=== PATIENT | female | born 1950 | race Caucasian/White ===

== ENCOUNTER 2024-06-29 14:25 | Outpatient (AMB) | payer MEDICARE, SELFPAY ==
--- NOTE | 2024-06-29 14:43 | A.OFFVIS_ITS ---
Intake Visit Reasons: OUTSIDE PHYSICAL DAMAGE [facility]PRAISER/[facility] referral for carotid stenosis Intake Note: New patient presents for carotid stenosis. Patient has been having surveillance ultrasounds for the last 10 years but states she was told there was an increase and that is why she was referred here. Accompanied by: Spouse Allergies No Known Allergies Allergy (Verified 06/29/24 14:47) HPI HPI OUTSIDE PHYSICAL DAMAGE APPRAISER/[facility] referral for carotid stenosis: Details: The patient is a 73-year-old female presenting with carotid artery stenosis. She has been undergoing regular monitoring due to the familial prevalence of cardiovascular diseases. Recently, she underwent carotid ultrasound, stating a 50-69% stenosis bilaterally with slightly more severe findings on the right. The patient reports no neurological symptoms typically related to carotid artery disease . She denies any lateralizing signs or symptoms, speech disturbances or visual field deficits. She smokes a limited number of cigarettes daily and denies other cardiovascular risk factors such as hypertension and diabetes. She is now for vascular evaluation. Of note she is being maintained on aspirin and high-dose statin. Review of Systems Const All systems reviewed & are unremarkable except as noted in HPI and below Reports no additional complaints ENT Reports Normal hearing present Card Denies chest pain, Denies chest pain at rest, Denies chest pain with activity and Denies pedal edema Resp Denies cough GI Denies abdominal pain Musc Denies abnormal gait, Denies muscle cramps and Denies radiating pain into limb Skin/Breast Denies skin ulcer and Denies wounds Neuro Reports Normal hearing present and Denies abnormal gait Psych Reports no additional complaints Physical Exam Const General: cooperative, healthy appearing and comfortable Orientation/consciousness: oriented to person, oriented to place and oriented to time HEENT Head: Yes normal to inspection Neck Neck: Yes normal visual inspection Carotids: no bruits Chest Chest palpation & inspection: normal inspection of the chest Resp Effort & Inspection: normal respiratory effort and able to speak in complete sentences Auscultation: clear to auscultation bilaterally, no crackles, no rales, no rhonchi and no wheezes Cardio Rate: regular rate Rhythm: regular rhythm Heart sounds: S1 normal heart sound present and S2 normal heart sound present Bruits: no carotid bruits Peripheral pulses: Peripheral pulses 2+ throughout GI Inspection: Yes normal to inspection Skin Wounds: no wounds Hair: normal Neuro General: oriented to person, oriented to place and oriented to time Cranial nerves: Yes CN's II-XII intact bilaterally and Yes Normal hearing present Cognition (Neuro): normal cognition Motor exam (neuro): 5/5 motor strength present throughout Extrem Other: venous exam: No significant superficial varicosities or spider telangiectasias, minimal edema General: No clubbing, No cyanosis and No edema Psych Appearance: grossly normal Mental Status: mental status grossly normal Speech and movement: Normal speech and movement present Results Reviewed Results Reviewed: Noninvasive carotid testing dated 05/26/2024 done at an outside institution demonstrates bilateral 50-69% stenosis with a peak systolic on the right of 176 and on the left of 129. Written report reviewed only. Assessment & Plan Assessment & Plan (1) Bilateral carotid artery stenosis: Code(s): I65.23 - Occlusion and stenosis of bilateral carotid arteries Category: Medical Plan: In short patient has asymptomatic carotid disease. We have reviewed signs and symptoms of a stroke. We also discussed risk factor modification inclusive a healthy diet low in cholesterol. Based on the estimation by velocities I do believe it is on the lower side of that range. I will do surveillance follow-up in approximately 6 months' time to re-evaluate this. The patient will follow up with us with surveillance ultrasound of the carotids 6 months. Should there be any changes or signs or symptoms of a stroke we will be happy to see them back sooner. Thank you for allowing us to participate in this patient's care. If there are any questions or concerns please do not hesitate to contact us. Orders: Orders US carotid duplex BI 6 Months I65.23 - Occlusion and stenosis of bilateral carotid arteries Coding Level of Care Code New Pt Level 4 (36700) Diagnoses Bilateral carotid artery stenosis I65.23
--- OUTSIDE RECORDS SUMMARY | 2024-06-29 15:35 | XMS_ITS | Data Portability ---
Author Organization [facility], [facility] Address [address] [place] [address] Care Team Providers Care Manager Music Name Role Phone CARMELINA STARR Phys. Med. & Rehab BRI LUCERO Primary Care Provider KOURTNEY JORDAN General Surgeon EDELMIRA STONE Steam Tender PETER STRICKLAND Director Data Analytics PETER STRICKLAND Speech Language Pathologist [phone] Assessment Encounter Date Assessment Date Assessment LastModified by Organization Details LastModified Time 04/28/2023 04/28/2023 We completed your Medicare Wellness exam today. This was an opportunity to assess your overall well being including your ability to care for yourself, your mobility, memory, mental health, as well as your safety. With advancing age, it is important to assign someone in your life as your Health Care Proxy (HCP). This person should know what is important to you and what your wishes are for medical procedures if you cannot communicate your wishes yourself (severe illness, unconsciousness) . We discussed having a completed Health Care Proxy form today. In addition, today we started a conversation about your End of Life wishes. These conversations will continue over the years. Please consider reading the book, Being Mortal by Duarte Mendez to help frame future conversations. We discussed the purpose of a MOLST form (Medical Orders for Life Sustaining Treatment) and completed this form if appropriate per your wishes. Vision and Hearing are senses that are critically important as we age. When impaired, they can contribute to memory loss, falls, and make it harder to drive, talk to family and friends, and engage in the world. Please get your vision checked yearly and your hearing checked when you start to notice hearing loss. We discussed approaches to lowering your risk of heart disease and stroke . Your blood pressure is at goal. Your cholesterol is at goal. We discussed cancer screening you may need as well as vaccines to prevent infections. Colon Cancer : Your risk of colon cancer is average. Due for colorectal screenin. If you are not planning to have a colonoscopy please screen with stool cards yearly. Breast Cancer : Breast Cancer Screening (mammography). Next mammogram due: 2023. Cervical Cancer Screening (pap test). Next pap due: not needed. Influenza Vaccine : Flu shot yearly. Tetanus Vaccine : Every 10 years. Due: 2031. The following vaccines are available from your pharmacy: Pneumonia Vaccine : PCV20: once after age 65. Shingles Vaccine : 2 shots after age 50. has had pneumovax and shingrix. Covid Vaccine : Make sure you have received the most up to date covid vaccine. Your personal health goal for the year is: skillip Not available 04/28/2023 15:17:39 05/28/2024 05/28/2024 We completed your Medicare Wellness exam today. This was an opportunity to assess your overall well being including your ability to care for yourself, your mobility, memory, mental health, as well as your safety. With advancing age, it is important to assign someone in your life as your Health Care Proxy (HCP). This person should know what is important to you and what your wishes are for medical procedures if you cannot communicate your wishes yourself (severe illness, unconsciousness) . We discussed having a completed Health Care Proxy form today. If appropriate, today we started a conversation about your End of Life wishes. These conversations will continue over the years. We discussed the purpose of a MOLST form (Medical Orders for Life Sustaining Treatment) and completed this form if appropriate per your wishes. Vision and Hearing are senses that are critically important as we age. When impaired, they can contribute to memory loss, falls, and make it harder to drive, talk to family and friends, and engage in the world. Please get your vision checked yearly and your hearing checked when you start to notice hearing loss. We discussed approaches to lowering your risk of heart disease and stroke . Your blood pressure is at goal. Your cholesterol is at goal. We discussed cancer screening you may need as well as vaccines to prevent infections. Colon Cancer : Your risk of colon cancer is . Due for colorectal screenin. If you are not planning to have a colonoscopy please screen with stool cards yearly. Breast Cancer : Breast Cancer Screening (mammography). Next mammogram due: 2024. Cervical Cancer Screening (pap test). Next pap due: not needed. Influenza Vaccine : Flu shot yearly. Tetanus Vaccine : Every 10 years. Due: 2031. The following vaccines are available from your pharmacy: Pneumonia Vaccine : PCV20: once after age 65. Shingles Vaccine : 2 shots after age 50. Covid Vaccine : Make sure you have received the most up to date covid vaccine. [email or web address] Not available 05/28/2024 13:52:07 Plan of Treatment Reminders Order Date Submit Date Provider Last Modified By Organization Details Last Modified Time Details Appointments Wellness Visit 30 2025 11:30A Radha Lucero MD Not available Not available Not available Lab sjogren antibody panel (ssa, ssb, ro, la), serum 2024 025 [facility], [address] [place] [address], [id number], 06/01/2024 17:37:40 fecal occult blood, immunoass ay, stool 2024 025 [facility], [address] [place] [address], [id number], 06/08/2024 11:10:39 fecal occult blood, immunoass ay, stool - Lab- Create annual order through [facility]M-IFOBT order set. 2023 024 [facility], [address] [place] [address], [id number], 05/26/2023 16:10:31 Referral cardiotho racic vascular surgeon referral 2024 025 [email or web address] , [address] [facility] [address], [place], [address], 05/31/2024 11:59:26 Procedures None recorded. Surgeries None recorded. Imaging MAMMO, screening , tomosynth esis, bilateral - 2nd Look Consult/D iag Mammo/US Breast/Gu ided Asp/Breas t Bx/Clip Placement , as clinicall y indicated . 2023 024 [facility] (Imaging), [address], [place], [address], 09/25/2023 15:39:54 Medication Orders nicotine 7 mg/24 hr daily transderm al patch 2022 023 [email or web address] 4 [facility][id number], [address] [place], [address], 05/28/2024 11:47:29 Patient TargetsNo targets recorded. Patient Instructions Encounter Date Encounter Id Patient Instructions Last Modified By Organization Details Last Modified Time 04/28/2023 [id number] advance directives: care instructions skillip Not available 04/28/2023 15:24:55 preventing falls : care instructions skillip Not available 04/28/2023 15:24:55 hearing loss: care instructions skillip Not available 04/28/2023 15:24:55 well visit, over 65: care instructions skillip Not available 04/28/2023 15:24:55 Reason for Referral Cardiothoracic Vascular Surg antoine Referral for Precerebral arterial occlusion Referring Physician: Mario Puri, Family Medicine, Encounter Date: 05/28/2024 Results Created Date Observation Date Name Description Value Unit Range Abnormal Flag Note LastModifiedBy Organization Detail LastModifiedTime 04/22/1904/22/2023 LIPID PANEL cholesterol 184 mg/dL <200 mg/dl Ana Lilia able 200-2 39 mg/dl Borde rline High >240 mg/dl High Not Available [address], [address], 04/22/2023 14:21:33 04/22/1904/22/2023 LIPID PANEL triglyceride s 68 mg/dL <150 mg/dL Jayshree l 150-1 99 mg/dL Borde rline High 200-4 99 mg/dL High >500 mg/dL Very High Not Available [address], [address], 04/22/2023 14:21:33 04/22/19 24 04/22/2023 LIPID PANEL direct HDL 62 mg/dL <40 mg/dl - Major Risk for CHD >60 mg/dl - Negat marie Risk for CHD Not Available [address], [address], 04/22/2023 14:21:33 04/22/19 24 04/22/2023 GLUCO SE glucose 83 mg/dL 70-100 Not Available [address], [address], 04/22/2023 14:21:34 04/22/19 24 04/22/2023 LDL - CALCU LATED LDL - calculated 108.4 RISK CATEG ORY LDL GOAL _ CHD or CHD Risk Equiv alent s <100 mg/dl (10-y ear risk >20%) 2+ Risk Facto rs <130 mg/dl (10-y ear risk <= 20%) 0-1 Risk Facto r? <160 mg/dl ? Almos t all peopl e with 0-1 risk facto r have a 10 year risk <10%, thus 10 year risk asses ment in peopl e with 0-1 risk facto r is not roslyn ewa. Not Available [address], [address], 04/22/2023 14:21:35 04/22/19 24 04/22/2023 TSH TSH 2.95 uIU/m L 0.50-6 .00 The [employer] Colle ge of Endoc rinol ogy and [employer] Thyro id Assoc iatio n recom mend goal TSH value s betwe en 0.4-4 .0 mIU/m L. Not Available [address], [address], 04/22/2023 14:47:38 05/25/19 24 05/26/2023 IMMUN OCHEM ICAL FECAL OCCUL T BLOOD ifobt NEGATI VE negati ve Not Available [address], [address], 05/26/2023 16:10:31 05/22/19 25 05/21/2024 CBC WBC 8.46 K/? ? ?L 3.98-1 0.04 Not Available [address], [address], 05/21/2024 12:42:34 05/22/19 25 05/21/2024 CBC RBC 4.79 M/? ? ?L 3.93-5 .22 Not Available [address], [address], 05/21/2024 12:42:34 05/22/19 25 05/21/2024 CBC HGB 13.9 g/dL 11.2-1 5.7 Not Available [address], [address], 05/21/2024 12:42:34 05/22/19 25 05/21/2024 CBC HCT 44.1 % 34.1-4 4.9 Not Available [address], [address], 05/21/2024 12:42:34 05/22/19 25 05/21/2024 CBC MCV 92.1 fL 79.4-9 4.8 Not Available [address], [address], 05/21/2024 12:42:34 05/22/19 25 05/21/2024 CBC MCH 29.0 pg 25.6-3 2.2 Not Available [address], [address], 05/21/2024 12:42:34 05/22/19 25 05/21/2024 CBC MCHC 31.5 g/dL 32.2-3 5.5 low Not Available [address] [place], [address], 05/21/2024 12:42:34 05/22/1905/21/2024 CBC plt 252 K/? ? ?L 182-36 9 Not Available [address], [address], 05/21/2024 12:42:34 05/22/1905/21/2024 CBC MPV 10.8 fL 9.4-12 .3 Not Available [address], [address], 05/21/2024 12:42:34 05/22/1905/21/2024 CBC neut% 67.5 % 34.0-7 1.1 Not Available [address], [address], 05/21/2024 12:42:34 05/22/1905/21/2024 CBC neut# 5.71 1.56-6 .13 Not Available [address], [address], 05/21/2024 12:42:34 05/22/1905/21/2024 CBC lymph % 24.2 % 19.3-5 1.7 Not Available [address], [address], 05/21/2024 12:42:34 05/22/1905/21/2024 CBC lymph # 2.05 K/? ? ?L 1.18-3 .74 Not Available [address], [address], 05/21/2024 12:42:34 05/22/1905/21/2024 CBC mono% 5.1 % 4.7-12 .5 Not Available [address], [address], 05/21/2024 12:42:34 05/22/1905/21/2024 CBC mono# 0.43 0.24-0 .56 Not Available [address], [address], 05/21/2024 12:42:34 05/22/19 25 05/21/2024 CBC eo% 2.1 % 0.7-5. 8 Not Available [address], [address], 05/21/2024 12:42:34 05/22/19 25 05/21/2024 CBC eo# 0.18 0.04-0 .36 Not Available [address], [address], 05/21/2024 12:42:34 05/22/19 25 05/21/2024 CBC baso% 0.7 % 0.1-1. 2 Not Available [address], [address], 05/21/2024 12:42:34 05/22/1905/21/2024 CBC baso# 0.06 0.00-0 .08 Not Available [address], [address], 05/21/2024 12:42:34 05/22/19 25 05/21/2024 CBC RDW-CV 13.5 % 11.7-1 4.4 Not Available [address], [address], 05/21/2024 12:42:34 05/22/1905/21/2024 CBC Ig% 0.400 % 0.000- 1.500 Ig % >0.5 Indic ates possi ble Left Shift Not Available [address], [address], 05/21/2024 12:42:34 05/22/19 25 05/21/2024 CBC Ig# 0.030 0.000- 0.093 Not Available [address], [address], 05/21/2024 12:42:34 05/22/19 25 05/21/2024 CBC NRBC% 0.0 % 0.0-0. 2 Not Available [address], [address], 05/21/2024 12:42:34 05/22/19 25 05/21/2024 CBC NRBC# 0.000 0.000- 0.012 Not Available [address], [address], 05/21/2024 12:42:34 05/22/19 25 05/21/2024 COMP. METAB OLIC PANEL glucose 84 mg/dL 70-100 Not Available [address], [address], 05/21/2024 14:09:30 05/22/19 25 05/21/2024 COMP. METAB OLIC PANEL BUN 10 mg/dL 7-18 Not Available [address], [address], 05/21/2024 14:09:30 05/22/19 25 05/21/2024 COMP. METAB OLIC PANEL creatinine 0.7 mg/dL 0.8-1. 3 low Not Available [address], [address], 05/21/2024 14:09:30 05/22/19 25 05/21/2024 COMP. METAB OLIC PANEL B/C 14.3 ratio Not Available [address], [address], 05/21/2024 14:09:30 05/22/19 25 05/21/2024 COMP. METAB OLIC PANEL GFR >=60ML /MIN mL/mi n normal >=60m L/min - Jayshree l or midly reduc ed <60mL /min- Decre ased kidne y funct ion <15mL /min - Kidne y failu re [facility] calcu lates estim ated Glome rular Filtr ation Rate (eGFR ) using the Chron ic Kidne y Disea se Epide miolo gy Colla borat ion (CKD- EPI) Equat ion (Jacqueline r et. al 2020) as recom adin d by the Venkatesh tinajero Kidne y Found ation . eGFR is based on age, serum creat inine , and sex. CKD-E PI does not calcu late eGFR by race, does not apply to child richard (age <18 years ), and shoul d not be used in pregn farhad. Not Available [address], [address], 05/21/2024 14:09:30 05/22/19 25 05/21/2024 COMP. METAB OLIC PANEL sodium 145 mmol/ L 136-14 5 Not Available [address], [address], 05/21/2024 14:09:30 05/22/19 25 05/21/2024 COMP. METAB OLIC PANEL potassium 4.5 mmol/ L 3.5-5. 1 Not Available [address], [address], 05/21/2024 14:09:30 05/22/19 25 05/21/2024 COMP. METAB OLIC PANEL chloride 109 mmol/ L 96-107 high Not Available [address], [address], 05/21/2024 14:09:30 05/22/19 25 05/21/2024 COMP. METAB OLIC PANEL anion gap 7.4 5.0-15 .0 Not Available [address], [address], 05/21/2024 14:09:30 05/22/19 25 05/21/2024 COMP. METAB OLIC PANEL CO2 29 mmol/ L 21-32 Not Available [address], [address], 05/21/2024 14:09:30 05/22/19 25 05/21/2024 COMP. METAB OLIC PANEL calcium 9.1 mg/dL 8.5-10 .3 Not Available [address], [address], 05/21/2024 14:09:30 05/22/19 25 05/21/2024 COMP. METAB OLIC PANEL total protein 6.0 g/dL 6.4-8. 2 low Not Available [address], [address], 05/21/2024 14:09:30 05/22/19 25 05/21/2024 COMP. METAB OLIC PANEL albumin 3.3 g/dL 3.4-5. 0 low Not Available [address], [address], 05/21/2024 14:09:30 05/22/19 25 05/21/2024 COMP. METAB OLIC PANEL globulin 2.7 g/dL Not Available [address], [address], 05/21/2024 14:09:30 05/22/19 25 05/21/2024 COMP. METAB OLIC PANEL A/G 1.2 ratio 0.8-2. 0 Not Available [address], [address], 05/21/2024 14:09:30 05/22/19 25 05/21/2024 COMP. METAB OLIC PANEL total bilirubin 0.60 mg/dL 0.00-1 .00 Not Available [address], [address], 05/21/2024 14:09:30 05/22/19 25 05/21/2024 COMP. METAB OLIC PANEL AST 16 U/L 0-37 Not Available [address], [address], 05/21/2024 14:09:30 05/22/19 25 05/21/2024 COMP. METAB OLIC PANEL ALT 28 U/L 6-63 Not Available [address], [address], 05/21/2024 14:09:30 05/22/19 25 05/21/2024 COMP. METAB OLIC PANEL alk. phos. 68 U/L 50-136 Not Available [address], [address], 05/21/2024 14:09:30 05/22/19 25 05/21/2024 LIPID PANEL cholesterol 172 mg/dL <200 mg/dl Ana Lilia able 200-2 39 mg/dl Borde rline High >240 mg/dl High Not Available [address], [address], 05/21/2024 14:09:31 05/22/19 25 05/21/2024 LIPID PANEL triglyceride s 91 mg/dL <150 mg/dL Jayshree l 150-1 99 mg/dL Borde rline High 200-4 99 mg/dL High >500 mg/dL Very High Not Available [address], [address], 05/21/2024 14:09:31 05/22/19 25 05/21/2024 LIPID PANEL direct HDL 65 mg/dL <40 mg/dl - Major Risk for CHD >60 mg/dl - Negat marie Risk for CHD Not Available [address], [address], 05/21/2024 14:09:31 05/22/1905/21/2024 LDL - CALCU LATED LDL - calculated 89 RISK CATEG ORY LDL GOAL _ CHD or CHD Risk Equiv alent s <100 mg/dl (10-y ear risk >20%) 2+ Risk Facto rs <130 mg/dl (10-y ear risk <= 20%) 0-1 Risk Facto r? <160 mg/dl ? Almos t all peopl e with 0-1 risk facto r have a 10 year risk <10%, thus 10 year risk asses ment in peopl e with 0-1 risk facto r is not aleahmarciano mcneil. Not Available [address], [address], 05/21/2024 14:09:32 05/22/19 25 05/21/2024 TSH TSH 2.83 uIU/m L 0.50-6 .00 The [employer] can Colle ge of Endoc rinol ogy and Ameri can Thyro id Assoc iatio n recom mend goal TSH value s betwe en 0.4-4 .0 mIU/m L. Not Available [address], [address], 05/21/2024 14:17:53 05/29/19 25 06/01/2024 SJOGR EN'S ANTIB ODIES (SS-A ,SS-B ) sjogren's antibody (ss-A) <1.0 NEG ai <1.0 neg normal Not Available [facility] [address], [address], 06/01/2024 17:37:40 05/29/19 25 06/01/2024 SJOGR EN'S ANTIB ODIES (SS-A ,SS-B ) sjogren's antibody (ss-B) <1.0 NEG ai <1.0 neg normal Not Available [facility] [address], [address], 06/01/2024 17:37:40 06/04/19 25 06/08/2024 IMMUN OCHEM ICAL FECAL OCCUL T BLOOD ifobt NEGATI VE negati ve Not Available [address], [address], 06/08/2024 11:10:39 01/23/20 23 01/20/2023 CT chest lung cance r cocoe alanna paige l CT CHEST LUNG CANCER SCREEN ING ANNUAL Referr ing clinic dimitris's provid ed indica tion for this examin ation in [facility]: * Lung Cancer Screen ing TECHNI QUE: Low dose multid etecto r CT of the chest was perfor med withou t intrav enous contra st using tailor ed dose modula tion techni ques. COMPAR TAVO: 022 FINDIN GS: Device s/Tube s/Line s: None. Lungs: The centra l airway s are patent . There is upper lobe centri lobula r emphys lisha. Scatte red solid 2 to 5 mm pulmon melvina nodule s are presen t the larges t measur e 6 mm (for instan ce 4:200, 89, 121, 166) No eviden ce of new or growin g pulmon melvina nodule s Pleura : No eviden ce of pleura l effusi on or pneumo thorax Medias tinum: The heart and perica rdium are stable . No eviden ce of perica rdial effusi on. Mild haskins ry artery calcif icatio n. Lymph Nodes: No enlarg ed suprac lavicu lar, axilla ry, medias tinal, or hilar lymph nodes. Upper Abdome n: Absenc e of intrav enous contra st and low dose techni que limits sensit ivity for detect ing small lesion s, solid organ and vascul ar findin gs. No abnorm ality detect ed in the visual ized upper abdome n. Chest Wall: No chest wall mass. Bones: No suspic ious lytic or blasti c lesion s. IMPRES KAYE: Lung-R ADS Catego ry: 2. Multip le pulmon melvina nodule s. The domina nt solid nodule is locate d in the right middle lobe and has a mean size of 6 mm (serie s 4, image 200). The catego ry-det ermini ng solid nodule has a very low likeli gregory of becomi ng a clinic ally active cancer , due to size and/or lack of growth . RECOMM ENDATI ONS: Contin ue annual Lung Cancer Screen ing Chest CT examin ation if patien t meets eligib ility criter ia, in Dece er 2023. To order, please type CT CHEST SCREEN ING (CT.TH .CHEST SCR) and select ANNUAL for patien t progra m status . Explan ation of the Lung-R ADS catego rosario can be found at: [email or web address] Electr onical ly Signed by: Dr. Jeff Barlow on 023 9:48 AM Interp reted by: Jeff Barlow MD Signed by: Jeff Barlow MD 3 Final result [facility] [address] [facility], [place], [address], 01/22/2023 21:45:05 09/25/19 24 09/25/2023 MAMMO , scree alanna, tomos ynthe sis, bilat eral MAMMO, SCREEN , MONIKA, BILAT: 09/25/19 24. BI-RAD S: 1 CLINIC AL: 73-yea r old Female for Bilate ral Screen ing Mammog tashia. [facility] lifeti me risk of 4.3%. No person al or first- degree family histor y of breast cancer . PRIOR EXAMS: Review ed previo us images from 2022. MAMMOG KAMAR TECHNI QUE: 3D mammog kamar (tomos ynthes is) and 2D mammog kamar (C-vie w) images are genera derrell. Images review ed with a CAD system . DENSIT Y C. Hetero geneou sly dense, which may obscur e small masses . MAMMOG KAMAR FINDIN GS Bilate ral: No suspic ious mass, asymme try, microc alcifi cation , or other abnorm ality seen. CONCLU SIONNo eviden ce of malign farhad. RECOMM ENDATI ONS Bilate ralAnn ual screen ing mammog kamar. ADMINI STRATI VE: A lay summar y was mailed to your patien t indica harman the result s and recomm endati ons for follow -up. OVERAL L ASSESS MENT CATEGO RY BI-RAD S-1: Negati ve. The [employer] o[employer] recomm ends annual screen ing mammog kamar beginn ing at age 40 for women with averag e risk of breast cancer . ELECTR ONICAL LY SIGNED : Suresh Ayala M.D. on 2023 at 03:38: 47 PM Megan smith Physic dimitris: Suresh Ayala [facility] (Imaging) [address] [place], [address], 09/25/2023 17:00:27 05/27/19 25 05/26/2024 US, carot id arter y CLINIC AL HISTOR Y: Pre-ce rebral arteri al occlus ion. TECHNI QUE: 2D, color flow, and spectr al Dopple r of the neck arteri es perfor med. COMPAR TAVO: 05/20/22 Image total: 83 FINDIN GS: R CCA peak systol ic veloci ty: 72 cm/s R ICA peak systol ic veloci ty: 176 cm/s R ICA/CC A SV ratio: 2.4 There is severe athero sclero tic diseas e on the right side. L CCA peak systol ic veloci ty: 103 cm/s L ICA peak systol ic veloci ty: 129 cm/s L ICA/CC A SV ratio: 1.3 Likely modera te athero sclero tic diseas e on the left side. There is antegr isauro flow in the verteb ral arteri es. IMPRES KAYE: Duplex ultras ound estima radha stenos is by using veloci ty parame ters that have been valida derrell with other method ologie s that utiliz e direct measur es of the internal control manager al deana arndt er. Based on these criter ia, there is 50-69% stenos is of the ICAs. Megan smith Physic dimitris: Otoniel richards [email or web address] [facility] (Imaging) [address] [place], [address], 05/28/2024 12:03:35 Result Notes None recorded. Problems Name Problem SNOMED Code Status Onset Date Resolution Date Notes Provider Name and Address Organization Details Recorded Time Abnormal findings on diagnost ic imaging of breast 439956862 Completed 01/26/2018 Bri Lucero MD [address] [place] [address], [address] , [facility] 8 11:54:46 Asthma 988001136 Completed 04/16/2016 Bennie Oh MD [address] [place] [address], [address] , [facility] 7 11:29:16 Osteoart hritis of knee 389096698 Active Not Available [facility] 1 12:37:45 Knee pain Completed 01/06/2013 Not Available [facility] 3 02:00:43 Lyme disease 98769157 Active Not Available [facility] 12:37:46 Measurem ent finding outside referenc e range 862297794 Completed 07/27/2014 Bennie Oh MD [address] [place] [address], [address] , [facility] 5 16:25:01 Pain of multiple joints 38759198 Completed 07/27/2014 Bennie Oh MD [address] [place] [address], [address] , [facility] 5 16:25:01 Hyperthy roidism 95459961 Active [facility] hyper function ing nodule Not Available [facility] 12:37:46 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; lobectom y done Not Available [facility] 12:37:45 Adult health examinat ion Completed 201507/22/2016 Bennie Oh MD [address] [place] [address], [address] , [facility] 7 12:15:15 Thyroid stimulat ing hormone level above referenc e range 223029567 Completed 201507/22/2016 Bennie Oh MD [address] [place] [address], [address] , [facility] 7 12:15:21 Cough variant asthma 039751665 Active 2016 Not Available [facility] 1 12:37:45 Screenin g for malignan t neoplasm of colon Active 2016 Not Available [facility] 12:37:46 Tobacco user 524409915 Active 2019 Quit last year (2018) and restarte d: 3 cigarett es per night. Not Available [facility] 12:37:46 Spastic dysphoni a 71859314 Active 2022 Blanca Herrera PA-C [address] [place], [address] , [facility] 3 14:19:44 Carotid artery stenosis 82649373 Active 2022 Blanca Herrera PA-C [address] [place], [address] , [facility] 3 14:19:46 Mixed hyperlip idemia 809595133 Completed 200103/29/2008 Not Available [facility] 3 03:06:24 Carotid artery occlusio n 404492618 Completed 200401/06/2013 Not Available [facility] 3 02:04:12 Benign neoplasm of skin of trunk, excludin g scrotum Completed 200403/29/2008 Not Available [facility] 3 03:06:24 Gastroes ophageal reflux disease 552963574 Active 2004 Not Available [facility] 1 12:37:46 Non-toxi c uninodul ar goiter 547070186 Completed 03/24/2014 Bennie Oh MD [address] [place] [address], [phone] , [facility] 5 17:21:31 Cerebral infarcti on 205340354 Completed 200501/02/2011 Not Available [facility] 3 03:06:24 Neck pain 12602330 Completed 200703/29/2008 Not Available [facility] 3 03:06:24 Motion sickness 28225135 Completed 200801/02/2011 Not Available [facility] 3 03:06:24 Basilar artery occlusio n 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 Completed 200703/29/2008 Not Available [facility] 3 03:06:24 Pain of joint 85267452 Completed 200403/29/2008 Not Available [facility] 3 03:06:24 Localize d, primary osteoart hritis of the hand 406464769 Completed 200601/02/2011 Not Available [facility] 3 03:06:24 Neoplast ic disease 44587173 Completed 201107/27/2014 Bennie Oh MD [address] [place] [address], [address] , [facility] 5 16:25:01 Anemia 682877301 Completed 200201/02/2011 Not Available [facility] 3 03:06:24 Hyperlip idemia 54354887 Active 2001 Not Available [facility] 1 12:37:46 Acute ill-defi neelam cerebrov ascular disease Active 2003 Not Available [facility] 1 12:37:45 Malaise and fatigue 402227661 Completed 200503/29/2008 Not Available [facility] 3 03:06:24 Carpal tunnel syndrome 46233251 Completed 200603/29/2008 Not Available [facility] 3 03:06:24 Solitary nodule of lung 819496168 Completed 09/19/2011 Not Available [facility] 3 03:06:24 Cough 93686832 Completed 200103/29/2008 Not Available [facility] 3 03:06:24 Senile hyperker atosis 009675369 Completed 200801/02/2011 Not Available [facility] 3 03:06:24 Senile hyperker atosis 941989755 Completed 200403/29/2008 Not Available [facility] 3 03:06:24 Inflamma tory disease of liver 038074435 Completed 200207/27/2014 Bennie Oh MD [address] [place] [address], [phone] , [facility] 5 16:25:01 Tobacco user 997195757 Completed 200206/13/2014 Farida Sosa NP [address] [place] [address], [address] , [facility] 0 10:46:16 Allergic asthma without status asthmati cus 49831808 Completed 200107/27/2014 Bennie Oh MD [address] [place] [address], [phone] , [facility] 5 16:25:01 Pure hypercho lesterol emia 244850507 Completed 200403/29/2008 Not Available [facility] 3 03:06:24 Menstrua tion finding Completed 200203/29/2008 Not Available [facility] 3 03:06:24 Precereb ral arterial occlusio n 597547174 Active 2008 carotid ultrasou nd every 2 years Not Available [facility] 1 12:37:45 Adverse reaction to substanc e 916316724 Completed 200203/29/2008 Not Available [facility] 3 03:06:24 Finding by method 588039178 Completed 200103/29/2008 Not Available [facility] 3 03:06:24 Breast lump 46966166 Completed 200801/02/2011 Not Available [facility] 3 03:06:24 Common cold 54108539 Completed 200503/29/2008 Not Available [facility] 3 03:06:24 Mammogra phy abnormal 092128727 Completed 200703/29/2008 Not Available [facility] 3 03:06:24 Insect bite to trunk - nonvenom ous 644167984 Completed 01/02/2011 Not Available [facility] 3 03:06:24 Lumbar sprain 005338656 Completed 199903/29/2008 Not Available [facility] 3 03:06:24 Osteoart hritis 047196069 Completed 200507/22/2016 Bennie Oh MD [address] [place] [address], [address] , [facility] 7 12:15:27 Hypothyr oidism 22206404 Completed 200703/24/2014 Bennie Oh MD [address] [place] [address], [address] , [facility] 5 17:21:31 Asthma 019166653 Completed 200801/02/2011 Bennie Oh MD [address] [place] [address], [phone] , [facility] 7 11:29:16 Pain in limb 78462744 Completed 200503/29/2008 Not Available [facility] 3 03:06:24 Primary fibromya lgia syndrome 31792548 Completed 200203/29/2008 Not Available [facility] 3 03:06:24 Problem Notes None recorded. Procedures Surgical History Date Name Laterality Status Provider Name and Address Organization Details Recorded Time 05/29/19 25 Medicare Wellness Visit completed Pan Hopkins [facility] 05/28/2024 11:29:55 05/29/19 25 Cerumen Removal - Irrigation/Lavage completed Yolis Caruso LPN [facility] 05/28/2024 12:22:08 04/28/19 24 Medicare Wellness Visit completed Peter Larson CMA [facility] 04/28/2023 14:44:47 01/17/20 23 Smoking cessation counseling completed Bibiana Tracy MA [facility] 01/16/2023 13:49:01 10/18/19 23 Smoking cessation counseling completed Amanda Guy [facility] 10/17/2022 13:38:17 08/23/19 23 Smoking cessation counseling completed Bibiana Tracy MA [facility] 08/22/2022 13:44:03 04/24/19 23 Smoking cessation counseling completed Charlene Phillips MA [facility] 04/23/2022 13:51:38 04/24/19 23 Medicare Wellness Visit completed Charlene Phillips MA [facility] 04/23/2022 09:08:18 10/18/19 22 Cerumen Removal - Irrigation/Lavage completed Elenita Barrett LPN [facility] 10/17/2021 12:54:21 09/06/19 22 Smoking cessation counseling completed Ana Lamar MD [address] [place] [address], [phone], [facility] 09/06/2021 09:33:11 03/19/19 22 Smoking cessation counseling completed Bri Lucero MD [address] [place] [address], [phone], [facility] 03/19/2021 11:42:40 03/19/19 22 Medicare Wellness Visit completed Courtney Rivera [facility] 03/19/2021 09:31:15 03/19/19 22 Alcohol use screening completed Courtney Rivera [facility] 03/19/2021 09:31:15 03/19/19 22 Cardiovascular disease risk reduction counseling completed Courtney Rivera [facility] 03/19/2021 09:31:15 02/03/20 20 Smoking cessation counseling completed Marium Helms [facility] 02/03/2020 08:19:44 02/03/20 20 Medicare Wellness Visit completed Marium Helms [facility] 02/03/2020 08:18:43 02/03/20 20 prevention-cardiov ascular risk reduction counseling completed Marium Helms [facility] 02/03/2020 08:18:43 02/03/20 20 prevention-annual alcohol misuse screening completed Marium Helms [facility] 02/03/2020 08:18:43 02/02/20 19 Medicare Wellness Visit completed Ananya Araujo MA [facility] 02/01/2019 08:05:02 02/02/20 19 Advanced Care Planning completed Bri Lucero MD [address] [place] [address], [phone], [facility] 02/01/2019 12:08:41 02/25/19 19 Cerumen Removal - Irrigation/Lavage completed Misti Hooper LPN [facility] 02/25/2018 13:00:43 01/27/20 18 Medicare Wellness Visit completed nAanya Araujo MA [facility] 01/26/2018 11:07:13 01/27/20 18 Advanced Care Planning completed Bri Lucero MD [address] [place] [address], [phone], [facility] 01/26/2018 12:05:00 11/23/19 15 Cerumen Removal completed Kortney Forte RN [facility] 11/22/2014 10:27:44 07/28/19 15 Corticosteroid Injection completed Bennie Oh MD [address] [place], [address], [facility] 07/27/2014 15:49:37 10/05/19 14 Corticosteroid Injection completed Bennie Oh MD [address] [place] [address], [phone], [facility] 10/04/2013 13:30:32 04/12/19 14 Treatment and Advice completed Carmelina Starr, PT [address] [place], [address], [facility] 04/12/2013 13:01:12 03/08/19 14 Treatment and Advice completed Carmelina Starr, PT [address] [place], [address], [facility] 03/08/2013 13:00:02 01/20/20 13 Treatment and Advice completed Carmelina Starr, PT [address] [place], [address], [facility] 01/19/2013 12:05:09 12/31/19 13 Treatment and Advice completed Carmelina Starr, PT [address] [place], [address], [facility] 12/30/2012 12:57:54 12/22/19 13 Treatment and Advice completed Carmelina Starr, PT [address] [place], [address], [facility] 12/21/2012 13:04:34 01/15/20 11 Cerumen Removal completed Hemalatha Antunez LPN [facility] 01/14/2011 12:15:20 03/30/19 09 Actinic Keratosis completed Bennie Oh MD [address] [place], [address], [facility] 03/30/2008 19:46:21 lobectomy of thyroid gland completed Blanca Herrera PA-C [address] [place], [address], [facility] 04/23/2022 14:06:25 Imaging Results Imaging Date Name Status LastModified by Organiz ation Details LastModified Time 01/20/2023 CT chest lung cancer screening annual completed [facility] [address] [facility], [place], [address], 01/22/2023 21:45:05 09/25/2023 MAMMO, screening, tomosynthesis, bilateral completed [facility] (Imaging) [address] [place], [address], 09/25/2023 17:00:27 05/26/2024 US, carotid artery completed [email or web address] (Imaging) [address] [place], [address], 05/28/2024 12:03:35 Procedure Notes None recorded. Medical Equipment None Reported. Allergies No known drug allergies Medications Name Sig Start Date Stop Date Status Note LastModified by Organization Details LastModified Time amoxicill in 500 mg capsule TAKE ONE CAPSULE BY MOUTH 3 TIMES A DAY FOR 7 DAYS active Not Available Not Available No t Available atorvasta tin 80 mg tablet TAKE 1 TABLET BY MOUTH EVERY DAY active Not Available Not Available No t Available prednison e 10 mg tablet 6 po daily today; 5 x1 day; 4x1;3x1; 2x1;1x1 2008 active Not Available Not Available Not Avai lable hydroquin one 4 % topical cream APPLY TO THE AFFECTED AREA(S) BY TOPICAL ROUTE 2 TIMES PER DAY IN THEMORNI NG AND AT BEDTIME 10/17 completed Not Available Not Available Not Available Debrox 6.5 % ear drops INSTILL 5 DROPS INTO AFFECTED EAR(S) BY OTIC ROUTE 2 TIMES PER DAY 02/25 completed Not Available Not Available Not Available Nicotrol 10 mg inhalatio n cartridge Inhale 1 cartridg e as needed by inhalati on route as directed for 30 days. 10/17 completed did not work 03/19/21 [facility] Not Available Not Available Not Available pantopraz ole 20 mg tablet,de layed release TAKE 1 TABLET BY MOUTH EVERY OTHER DAY 2023 active Not Available Not Available Not Avai lable oxycodone -acetamin ophen 5 mg-325 mg tablet TAKE 1-2 TABLET BY MOUTH EVERY 4 HOURS NEEDED FOR PAIN active Not Available Not Available No t Available Questran 4 gram oral powder 2007 active Take 4.00 gms twice daily Not Available Not Available Not Available pantopraz ole 40 mg tablet,de layed release TAKE 1 TABLET DAILY active Not Available Not Available No t Available gabapenti n 300 mg capsule take 1 tablet three times a day active Not Available Not Available No t Available monteluka st 10 mg tablet TAKE 1 TABLET EVERY DAY IN THE EVENING active Not Available Not Available No t Available aspirin 81 mg tablet Take 1 tablet every day by oral route. 2008 active Not Available Not Available Not Avai lable gabapenti n 100 mg capsule active Not Available Not Available Not Available Transderm -Scop 1 mg over 3 days transderm al patch Apply 1 patch by transder mal route to the hairless area behind 1 ear at least 4 hours before effect is required ; reapply every 3 days as needed 2008 active Not Available Not Available Not Avai lable doxycycli ne hyclate 100 mg tablet Take 1 tablet twice a day by oral route for 14 days. 09/14 completed Not Available Not Available Not Available nicotine 7 mg/24 hr daily transderm al patch Apply 1 patch every day by transder mal route for 28 days. 05/28 completed not current 05/28/24 tb Not Available Not Available Not Available Aspir-81 active not currentl y taking while on blood thinner 08/22/22/ m // not taking 01/16/23 Not Available Not Available Not Available ProAir HFA 90 mcg/actua tion aerosol inhaler INHALE 2 PUFFS BY MOUTH EVERY 4 HOURS active Not Available Not Available No t Available Xarelto 20 mg tablet TAKE 1 TABLET BY MOUTH EVERY DAY FOR 60 DAYS 01/16 completed Not Available Not Available Not Available Xarelto DVT-PE Treatment 30-Day Starter 15 mg(42)-20 mg(9) tablet pack Take one 15mg tablet twice a day for 21 days then take one 20mg tablet once daily for 9 days 01/16 completed complete d now taking 20 mg daily 01/16/23 Not Available Not Available Not Available tiotropiu m 2.5 mcg-oloda terol 2.5 mcg/actua tion mist for inhalatio n Inhale 2 puffs every day by inhalati on route. 04/23 completed per pulm note 01/24/22 Not Available Not Available Not Available tiotropiu m-olodate rol 06/14 completed noted on summary of care from 06/03/22c aused a cough 06/14/22 Not Available Not Available Not Available Shingrix (PF) 50 mcg/0.5 mL intramusc ular suspensio n, kit 02/01 completed Not Available Not Available Not Available Paxlovid 300 mg (150 mg x 2)-100 mg tablets in a dose pack Take nirmatre lvir 300mg (150mg x 2 tabs) and ritonavi r 100mg (one tab) by mouth twice a day x 5 days 05/28 completed not current 05/28/24 tb Not Available Not Available Not Available Vitals Date Recorded Body height Body mass index (BMI) Body weight Systolic blood pressure Diastolic blood pressure Provider Name and Address Organization Details Last Updated DateTime 01/16/2023 153.67 cm 24.2 kg/m2 24383.64 g 102 mm[Hg] 60 mm[Hg] Bibiana bone [facility] 3 13:52:24 Date Recorded Body height Heart rate Body mass index (BMI) Body weight Systolic blood pressure Diastolic blood pressure Provider Name and Address Organization Details Last Updated DateTime 4 155.58 cm 68 /min 23.2 kg/m2 66393.7 4 g 128 mm[Hg] 66 mm[Hg] Peter Larson [facility] 4 14:51:00 Date Recorded Oxygen saturation Oxygen saturation in Arterial blood by Pulse oximetry Heart rate Body weight Body mass index (BMI) Body height Systolic blood pressure Diastolic blood pressure Provider Name and Address Organization Details Last Updated DateTime 5 99 % 99 % 82 /min 45131.3 4 g 23.4 kg/m2 156.21 cm 122 mm[Hg] 68 mm[Hg] Pan Hopkins [facility] 5 11:42:09 Social History Question Answer Notes LastModified by Organizat ion Details LastModified Time Tobacco Smoking Status Former Smoker started at 22; mostly 1/2 PPD 04/23/22 3 a day on average 08/22/22 - 3/4 cigarettes a night 01/16/23 - 3/4 @ night Using patch, mostly without smoking 04/28/23 sherita Hopkins MA [facility], [facility] 05/28/2024 11:36:39 Do You Have An Advance Directive? No Form Given-regiven 12/15/12 Latia Isaac Information not available 07/25/2009 How Much Tobacco Do You Chew? None [email or web address] Information not available 01/01/2013 Which Illicit Or Recreational Drugs Have You Used? None [email or web address] Information not available 01/03/2011 Education 12 [email or web address] Information not available 01/03/2011 What Is The Highest Grade Or Level Of School You Have Completed Or The Highest Degree You Have Received? [id number] [email or web address] Information not available 03/19/2021 When Did You Quit Smoking? 1-5yearssin celastciantione ette Information not available 05/28/2024 How Many Days In The Past Year Have You Had A Heavy Drinking Consumption (4+ Female, 5+ Male)? 0 [email or web address] Information not available 02/03/2020 Live Alone Or With Others? With Others Partner Latia Isaac Since 1984 Information not available 12/15/2012 Patient Has Health Care Proxy Signed And In Chart Yes [email or web address] Information not available 03/17/2018 CCM Consent Discussion 03/19/2021 [email or web address] Information not available 03/22/2021 Marital Status Domestic Partner [email or web address] Information not available 01/03/2011 Mosquito Repellent Used Routinely Yes Information not available 08/11/2017 What Was The Date Of Your Most Recent Tobacco Screening? 05/28/2024 Information not available 05/28/2024 How Many Children Do You Have? 0 [email or web address] Information not available 01/03/2011 Are There Any Occupational Health Risks Where You Work? None Information not available 08/11/2017 What Is Your Current Pack Years? 20-29packye ars Information not available 05/28/2024 What Is Your Relationship Status? Domestic Partner [email or web address] Information not available 03/19/2021 Seat Belts Used Routinely Yes [email or web address] Information not available 01/03/2011 Are You Sexually Active? No Information not available 01/22/2017 Smoke Alarm In Home Yes [email or web address] Information not available 01/02/2011 At What Age Did You Start Smoking Tobacco? 22 [email or web address] Information not available 09/22/2023 How Much Tobacco Do You Smoke? 1 PPW Goes Off And On Cigs 3-5 Cig Per Day When Smoking Information not available 09/22/2023 General Stress Level Low skillip Information not available 01/26/2018 How Many Days In The Past Year Have You Consumed 4 Or More Drinks? 0 [email or web address] Information not available 04/23/2022 Sex: Female Functional Status Question Answer Note LastModified by Organizat ion Details LastModified Time Do you use any illicit or recreational drugs? No Information not available 03/19/2021 Do you or have you ever used any other forms of tobacco or nicotine? No Information not available 04/23/2022 Do you or have you ever used smokeless tobacco? Never used smokeless tobacco Information not available 02/01/2019 Are you currently employed? No [email or web address] Information not available 03/19/2021 What is your occupation? retired [email or web address] Information not available 12/16/2013 Do you or have you ever used e-cigarettes or vape? Never used electronic cigarettes Information not available 02/01/2019 Mental Status None recorded. Family History Relationship Description Onset Age of this Age Resolved Age Notes LastModified by Organization Details LastModified Time Father Coronary arterioscler osis skillip Not available 2017 12:07:49 Father Malignant neoplasm of lung 84 skillip Not available 2017 12:08:05 Mother Malignant neoplasm of lung 69 skillip Not available 2017 12:08:43 Notes:no DM; no breast cance r, no colon cancer; has 3 healthy sisters. Medical History Condition Response GERD Y RHEUMATOLOGIC Y Lyme Disease Y Allergic Rhinitis Y Hyperlipidemia Y Asthma Y Gynecological History Statement/Question Response Date of LMP Obstetrics History GPAL:G 0 P 0 0 0 0 Immunizations Vaccine Type Date Status Note Provider Nam e and Address Organization Details Recorded Time Td(adult) unspecified formulation 2 completed Not Available [facility] 10/18/2022 11:39:18 Tdap 1 completed Not Available [facility] 03/06/2019 02:35:39 influenza, unspecified formulation 8 completed Not Available [facility] 10/18/2022 11:39:17 Influenza, split virus, trivalent, preservative 2 completed Not Available [facility] 03/06/2019 02:32:24 zoster live 3 completed Not Available [facility] 03/06/2019 02:16:35 Influenza, split virus, trivalent, PF 3 completed Not Available [facility] 03/06/2019 02:28:18 Influenza, split virus, trivalent, preservative 1 completed Not Available [facility] 10/18/2022 11:39:18 Influenza, split virus, quadrivalent, PF 5 completed Not Available [facility] 03/06/2019 02:20:10 Influenza, split virus, quadrivalent, PF 6 completed Not Available [facility] 03/06/2019 02:21:08 Influenza, split virus, quadrivalent, PF 7 completed Not Available [facility] 03/06/2019 02:37:57 Influenza, high-dose, trivalent, PF 8 completed Not Available [facility] 03/06/2019 02:28:13 Pneumococcal conjugate PCV 13 8 completed Not Available [facility] 03/06/2019 02:23:30 Influenza, high-dose, trivalent, PF 9 completed Not Available [facility] 03/06/2019 02:27:07 pneumococcal polysaccharide PPV23 0 completed Not Available [facility] 03/06/2019 02:24:37 Influenza, high-dose, quadrivalent, PF 0 completed Not Available [facility] 10/18/2022 11:39:17 Td (adult), 2 Lf tetanus toxoid, preservative free, adsorbed 2 completed Bri Lucero MD [address] [place] [address], [phone], [facility] 03/21/2021 20:41:57 Influenza, high-dose, quadrivalent, PF 2 completed Bahman Fabian RN null, [facility] 11/28/2021 15:01:47 Influenza, split virus, trivalent, preservative 0 completed [facility] Available [facility] 03/06/2019 02:17:48 pneumococcal polysaccharide PPV23 0 completed Not Available [facility] 03/06/2019 02:35:38 COVID-19, mRNA, LNP-S, PF, 30 mcg/0.3 mL dose 1 completed Not Available [facility] 10/18/2022 11:39:17 COVID-19, mRNA, LNP-S, PF, 30 mcg/0.3 mL dose 1 completed Not Available [facility] 10/18/2022 11:39:17 Influenza, high-dose, quadrivalent, PF 3 completed Alondra Mcdermott LPN null, [facility] 11/29/2022 14:08:58 Influenza, split virus, quadrivalent, preservative 1 completed Not Available [facility] 10/18/2022 11:39:17 Influenza, high-dose, trivalent, PF 4 completed Alondra Mcdermott LPN null, [facility] 12/05/2023 14:46:48 COVID-19, mRNA, LNP-S, PF, 30 mcg/0.3 mL dose 1 completed Not Available [facility] 10/18/2022 11:39:17 zoster recombinant 9 completed Not Available [facility] 10/18/2022 11:39:17 zoster recombinant 9 completed Not Available [facility] 10/18/2022 11:39:17 COVID-19, mRNA, LNP-S, PF, 30 mcg/0.3 mL dose 2 completed Not Available [facility] 10/18/2022 11:39:17 COVID-19, mRNA, LNP-S, PF, 30 mcg/0.3 mL dose 3 completed Peter Larson CMA null, [facility] 04/28/2023 14:54:42 Respiratory syncytial virus (RSV) vaccine, unspecified [address] [facility] 10/27/2023 13:59:47 Past Encounters Encounter ID Performer Location Encounter Start Date Encounter Closed Date Diagnosis/Indication Diagnosis SNOMED-CT Code Diagnosis ICD10 Code Diagnosis Note [id number] Carmelina An i, PT Physical Therapy, [address] [address] 12/21/1999 15:00:00 03/09/2008 02:02:29 [id number] Carmelina An i, PT Physical Therapy, [address] [address] 01/02/2000 17:30:00 03/09/2008 02:02:29 [id number] Bennie Oh MD , [facility], OFFICE [address] [place] [address] 06/15/2001 14:30:00 03/09/2008 02:02:29 [id number] [facility] RADIOLOG[facility] Technologi Radiology , [address] [address] 07/02/2001 15:30:00 03/09/2008 02:02:29 [id number] Bennie Oh MD , [facility], [address] [place] [address] 07/02/2001 14:30:00 03/09/2008 02:02:29 [id number] [facility] - [address] [address] 07/07/2001 08:45:00 03/09/2008 02:02:29 [id number] [facility] Radiology , [address] [address] 07/27/2001 13:11:25 03/09/2008 02:02:29 [id number] Bennie Oh MD , [facility], [address] [place] [address] 08/19/2001 10:59:23 03/09/2008 02:02:29 [id number] [facility] - [address] [address] 10/21/2001 07:53:56 03/09/2008 02:02:29 [id number] [facility] - [address] [address] 02/22/2002 10:55:07 03/09/2008 02:02:29 [id number] [facility] - [address] [address] 02/25/2002 16:39:47 03/09/2008 02:02:29 [id number] Bennie Oh MD , [facility], [address] [place] [address] 02/25/2002 15:54:59 03/09/2008 02:02:29 [id number] Bennie Oh MD , [facility], [address] [place] [address] 04/26/2002 07:42:22 03/09/2008 02:02:29 [id number] [facility], [facility] [address] [place] [address] 05/05/2002 16:44:05 03/09/2008 02:02:29 [id number] [facility] - [address] [address] 06/09/2002 16:05:58 03/09/2008 02:02:29 [id number] [facility] - [address] [address] 09/28/2002 16:43:14 03/09/2008 02:02:29 [id number] [facility] - [address] [address] 10/28/2002 16:14:29 10/28/2002 16:14:55 [id number] Bennie Oh MD , [facility], OFFICE [address] [place] [address] 10/28/2002 15:02:54 10/28/2002 16:45:19 [id number] Bennie Oh MD , [facility], OFFICE [address] [place] [address] 11/12/2002 14:30:17 11/13/2002 10:17:55 [id number] [facility] Radiology , [facility] [address] [place] [address] 6 03/02/2003 14:37:59 03/09/2008 02:02:29 [id number] Bennie Oh MD , [facility], OFFICE [address] [place] [address] 6 11/09/2003 11:14:44 11/09/2003 15:41:54 [id number] [facility] , [address] [address] 11/10/2003 11:08:05 11/11/2003 09:37:15 [id number] [facility] - [address] [address] 11/15/2003 09:41:11 11/15/2003 09:41:16 [id number] [facility] - [address] [address] 01/31/2004 08:11:43 01/31/2004 08:11:48 [id number] [facility] - [address] [address] 03/27/2004 08:24:18 03/27/2004 08:24:22 [id number] MD BASILIO Echeverria, [facility], OFFICE [address] [place] [address] 04/12/2004 15:43:25 04/13/2004 08:44:11 [id number] [facility] Radiology , [address] [address] 6 05/09/2004 11:33:57 05/10/2004 09:15:29 [id number] [facility] Radiology , [address] [address] 6 05/09/2004 00:00:00 03/09/2008 02:02:29 [id number] MD BASILIO Echeverria, [facility], OFFICE [address] [place] [address] 09/06/2004 15:54:15 03/09/2008 02:02:29 [id number] [facility] - [address] [address] 6 09/24/2004 15:26:30 09/24/2004 15:27:05 [id number] MD BASILIO Echeverria, [facility], OFFICE [address] [place] [address] 6 12/21/2004 13:31:58 03/09/2008 02:02:29 [id number] MD BASILIO Echeverria, [facility], OFFICE [address] [place] [address] 6 01/14/2005 14:25:48 03/09/2008 02:02:29 [id number] Bennie Oh MD , [facility], OFFICE [address] [place] [address] 03/14/2005 15:03:10 03/15/2005 08:44:36 [id number] [facility] Radiology , [facility] [address] [place] [address] 6 05/22/2005 14:31:52 05/23/2005 10:16:00 [id number] [facility] Radiology , [facility] [address] [place] [address] 6 05/22/2005 00:00:00 03/09/2008 02:02:29 [id number] [facility] , [address] [address] 6 08/14/2005 16:14:03 03/09/2008 02:02:29 [id number] [facility] Radiology , [facility] [address] [place] [address] 6 08/14/2005 00:00:00 03/09/2008 02:02:29 [id number] Bennie Oh MD , [facility], OFFICE [address] [place] [address] 6 08/14/2005 15:41:06 03/09/2008 02:02:29 [id number] [facility] - [address] [address] 6 08/22/2005 08:29:32 08/22/2005 08:29:43 [id number] [facility] - [address] [address] 6 10/01/2005 07:49:54 10/01/2005 07:49:59 [id number] Bennie Oh MD , [facility], OFFICE [address] [place] [address] 01/17/2006 13:24:50 03/09/2008 02:02:29 [id number] [facility] - [address] [address] 6 01/17/2006 14:17:26 01/17/2006 14:17:42 [id number] [facility] - [address] [address] 6 01/17/2006 00:00:00 03/09/2008 02:02:29 [id number] [facility] , [facility] [address] [place] [address] 6 01/31/2006 11:07:34 02/03/2006 09:14:48 [id number] [facility] , [address] [address] 6 01/31/2006 00:00:00 03/09/2008 02:02:29 [id number] [facility] Radiology , [address] [address] 6 07/04/2006 11:26:04 07/07/2006 09:29:49 [id number] [facility] , [address] [address] 6 07/04/2006 00:00:00 03/09/2008 02:02:29 [id number] Bebeto Moore MD Rheumatol ogy, [address] [address] 12/29/2006 09:36:15 03/09/2008 02:02:29 [id number] [facility] - [address] [address] 6 04/28/2007 14:23:14 04/28/2007 14:23:36 [id number] Bennie Oh MD , [facility], OFFICE [address] [place] [address] 04/28/2007 13:25:28 03/09/2008 02:02:29 [id number] [facility] , [address] [address] 6 05/01/2007 10:52:31 05/04/2007 09:33:11 [id number] [facility] , [address] [address] 6 05/01/2007 00:00:00 03/09/2008 02:02:29 [id number] [facility] - [address] [address] 6 08/11/2007 08:20:43 08/11/2007 08:20:47 [id number] [facility] , [address] [address] 6 09/04/2007 11:28:50 09/07/2007 09:13:00 [id number] [facility] Radiology , [address] [address] 6 09/04/2007 00:00:00 03/09/2008 02:02:29 [id number] [facility] Radiology , [address] [address] 6 09/15/2007 11:25:27 2007 09:18:01 [id number] [facility] , [address] [address] 6 09/15/2007 00:00:00 03/09/2008 02:02:29 [id number] Bennie Oh MD , [facility], OFFICE [address] [place] [address] 6 12/08/2007 09:48:27 03/09/2008 02:02:29 [id number] Bennie Oh MD , [facility], OFFICE [address] [place] [address] 6 03/30/2008 14:22:06 04/01/2008 11:33:43 [id number] Bennie Oh MD , [facility], OFFICE [address] [place] [address] 6 06/03/2008 11:22:29 06/07/2008 13:24:53 [id number] [facility] , [address] [address] 6 06/21/2008 11:09:10 06/24/2008 09:11:16 [id number] Tien Michel MD , [facility], OFFICE [address] [place] [address] 09/07/2008 17:15:03 09/12/2008 10:11:09 [id number] [facility] , [address] [address] 6 12/07/2008 10:44:49 12/08/2008 13:18:23 [id number] [facility] Radiology , [address] [address] 6 03/16/2008 11:23:12 03/17/2008 09:16:35 [id number] [facility] , [address] [address] 6 03/16/2008 00:00:00 12/15/2008 02:00:52 [id number] [facility] - [address] [address] 6 06/07/2008 09:01:48 06/07/2008 09:01:58 [id number] [facility] , [address] [address] 6 06/21/2008 00:00:00 12/15/2008 02:00:52 [id number] [facility] , [address] [address] 6 12/07/2008 00:00:00 12/15/2008 02:00:52 [id number] [facility] - [address] [address] 6 12/13/2008 09:13:19 12/13/2008 09:13:36 [id number] MD BASILIO Echeverria, [facility], OFFICE [address] [place] [address] 6 07/25/2009 09:58:20 07/25/2009 16:54:11 [id number] [facility] FP, [facility], OFFICE [address] [place] [address] 12/05/2009 07:29:11 12/05/2009 12:56:57 [id number] [facility] , [address] [address] 01/02/2010 12:39:16 01/03/2010 11:02:50 [id number] Halima Delacruz NP FP, [facility], OFFICE [address] [place] [address] 6 01/14/2011 11:14:05 01/14/2011 12:15:20 [id number] [facility] , [address] [address] 6 01/31/2011 12:41:30 02/01/2011 13:49:55 [id number] [facility] , [address] [address] 6 02/20/2011 10:53:42 02/22/2011 13:40:54 [id number] MD BASILIO South, [facility], OFFICE [address] [place] [address] 6 06/10/2011 13:38:52 06/11/2011 11:01:51 [id number] [facility] RADIOLOGY [facility] , [address] [address] 06/10/2011 14:15:00 06/10/2011 15:00:31 [id number] MD BASILIO Echeverria, [facility], OFFICE [address] [place] [address] 6 08/23/2011 14:50:25 08/23/2011 15:29:05 [id number] Bennie Oh MD , [facility], OFFICE [address] [place] [address] 12/02/2011 13:53:33 12/03/2011 14:06:15 [id number] Latia Gallegos MD Radiology , [facility] [address] [place] [address] 05/19/2012 13:09:16 05/20/2012 14:28:40 [id number] Bennie Oh MD , [facility], OFFICE [address] [place] [address] 10/07/2012 12:05:42 10/07/2012 12:23:21 Pure hypercholesterolemia 102116404 Edema of l ower extremity 691833313 exam is not that impressive - maybe swelling from activity-- make sure doesn't have an occult dvt [id number] Bennie Oh MD , [facility], OFFICE [address] [place] [address] 10/12/2012 16:44:10 10/12/2012 17:27:12 Knee pain 26168603 internal derangemen t vs lat collateral lig sprain and hamstring sprain. but witheffusi on I think there is atorn meniscus. plan - knee immobilize r. ret in 1 week. If not better, refer to ortho. [id number] Bennie Oh MD , [facility], OFFICE [address] [place] [address] 10/21/2012 09:38:28 10/23/2012 08:24:37 Varicella vaccination 27216384 Knee pain 81586023 inter nal derangemen t vs lat collateral lig sprain [id number] Bennie Oh MD , [facility], OFFICE [address] [place] [address] 12/15/2012 11:07:53 12/15/2012 13:08:31 Adult health examination [id number] see Risk Assessment and Lifestyle Change Counseling section above Precerebra l arterial occlusion 334856820 CONTINUE ASA Influenza vaccine needed [id number] 106 Asthma 481499166 SHE MENTIONS PERIODIC COUGHIN- i THINK HER ASTHMA IS MORE COUGH VARIENT.GE T SPIROMETRY Osteoarthr itis of knee 836237636 Thyroid ho rmone tests outside reference range 259547922 TSH LOW- ASYMPTOMAT IC- FREE T4 IS PENDING [id number] Bennie Oh MD , [facility], OFFICE [address] [place] [address] 12/16/2012 11:17:05 12/16/2012 13:13:04 IgE-mediated allergic asthma 248907246 [id number] Carmelina Starr , PT Physical Therapy, [facility] [address] [place] [address] 12/21/2012 12:02:35 12/23/2012 08:02:23 Knee pain 77465751 [id number] Carmelina Starr , PT Physical Therapy, [facility] [address] [place] [address] 12/30/2012 12:23:05 12/31/2012 07:24:19 Knee pain 40900736 [id number] Kedar Varela MD , [facility], OFFICE [address] [place] [address] 01/01/2013 16:52:50 01/04/2013 11:41:11 Knee pain 46142123 xray neg, likley sprain, ice, crutches, f/u for reeval next week [id number] Carmelina Starr , PT Physical Therapy, [facility] [address] [place] [address] 6 01/11/2013 11:23:34 01/12/2013 09:38:26 Knee pain 49782812 [id number] Bennie Oh MD , [facility], OFFICE [address] [place] [address] 01/11/2013 13:32:41 01/11/2013 15:21:24 Knee pain 17567490 lat collateral lig sprain plus aggravatio n of djd. plan- PT, crutches. [id number] Carmelina Starr , PT Physical Therapy, [facility] [address] [place] [address] 01/19/2013 11:27:03 01/20/2013 07:26:11 Knee pain 70987269 [id number] Carmelina Starr , PT Physical Therapy, [facility] [address] [place] [address] 6 01/27/2013 12:41:37 01/29/2013 07:34:45 Knee pain 28456852 [id number] Carmelina Starr , PT Physical Therapy, [address] [address] 6 02/03/2013 14:15:50 02/04/2013 08:03:23 Knee pain 74064762 [id number] Carmelina Starr , PT Physical Therapy, [address] [address] 02/22/2013 12:20:18 02/22/2013 13:39:24 Knee pain 92453252 [id number] Carmelina Starr , PT Physical Therapy, [address] [address] 6 03/01/2013 12:23:30 03/01/2013 13:34:21 Knee pain 85852065 [id number] Carmelina Starr , PT Physical Therapy, [address] [address] 6 03/08/2013 12:22:12 03/08/2013 13:08:51 Knee pain 25023098 [id number] Carmelina Starr PT Physical Therapy, [address] [address] 6 03/15/2013 12:53:20 03/15/2013 15:05:22 Knee pain 59263458 [id number] Carmelina Starr PT Physical Therapy, [address] [address] 6 03/29/2013 12:24:41 03/31/2013 07:13:56 Knee pain 00861500 [id number] Carmelina Starr PT Physical Therapy, [address] [address] 6 04/12/2013 12:27:45 04/12/2013 14:20:29 Knee pain 89038917 [id number] Bennie Oh MD , [facility], OFFICE [address] [place] [address] 06/16/2013 11:14:00 06/16/2013 11:46:02 Multiple nodules of lung 882176063 hx of carcinoid tujor-on bx. new spot on CT scan- Dr. Tate not too worried. pt told by him to clean humidifier and repat CT scan in August- Pt seen for 1/2 hour- tried to reassur her to continue with the plan and not get too discourage or get other testing. Knee pain 21520966 djd o f knee - doing better Tobacco user [id number] u rged to stay off cigs- don't use cigs as a stress plug maker [id number] Bennie Oh MD , [facility], OFFICE [address] [place] [address] 07/19/2013 10:58:00 07/19/2013 12:21:13 Osteoarthritis of knee 377822890 avoid jumping jacks- can start walking again Metatarsalgia 90728050 s houldget better in time- avoid jumping jacks Tick bite 88642612 tock removed with twisters- no chance of lyme- tick not engorged and was on her less than 24 hrs [id number] Bennie Oh MD , [facility], OFF[address] [place] [address] 08/19/2013 12:13:18 08/23/2013 09:33:42 Osteoarthritis of knee 020319355 Metatarsalgia 74879324 Tick bite 63219724 doubt lyme disease- but will check titer. [id number] Bennie Oh MD , [facility], OFFICE [address] [place] [address] 09/22/2013 14:49:19 09/24/2013 15:20:07 Arthritis 2437942 I'm not sure if pt really has lyme arthritis. there has been not response to doxycyclin e, there arthritis involves many joints and is symmetrica l. there has been involvemen t of the pip joints. the positivie lyme test could be from ols latent infection. I spend 20 of 25 min encounter going over this for pt is very upset. I told her to start aleeve and after i get more info, I will refer her to a rheumatolo gist. I need to r/o RA in this 62 y/o smoker with symmetrica l athritis. She has known djd right knee. [id number] Bennie Oh MD , [facility], OFFICE [address] [place] [address] 10/04/2013 11:54:26 10/04/2013 12:48:19 Arthritis 3296708 I think pt may have rheumatoid arthtritis . told her her symmetrica l arthralgia s and not likel from lyme. RF factor >99 though ccpantibod y was normal. To see Dr. Moore rheumatolo gist later this month. continue on alleve Osteoarthr itis of knee 644215187 right knee injected with cortisone- ret prn Lyme disease 18424903 I don't think her artrhalgia s are related to LYme. we have no idea how long she was positive. no aciute sx of lyme. So this was most likely an asymptomat ic latent infection. Fully treated with doxycyclin e. [id number] Bebeto Moore MD Rheumatol [facility] [place], [facility] [address] [place] [address] 10/25/2013 09:22:12 10/26/2013 09:14:37 Lyme disease 44711901 I believe that this patient's recent symptoms, now resolved, were from Lyme disease. Her Western blot antibodies were positive for both IgM and IgG and there was a basically full antibiotic response, although the symptoms lingered a little longer than might be expected. She has been completely asymptomat ic for more than a month. She wondered about additional testing for Lyme disease, but I explained that her antibodies will stay positive and there is no utility in repeating testing. I believe that she has had a bacterial sure with the treatment, but it would be important for me to see her again should she have renewed symptoms. She does have a very high titer rheumatoid factor. CCP was negative. Positive rheumatoid factor is reported in connection with Lyme disease. We should screen for other causes of positive rheumatoid factor. At this time, in the absence of any joint swelling or synovitis, she does not have rheumatoid arthritis and I explained this to her. Screening labs will be sent off today. Measuremen t finding outside reference range 667668318 High titer rheumatoid factor at 1722. She does not have rheumatoid arthritis. Positive rheumatoid factor is reported in associatio n with Lyme disease. Will also screen for Sjogren's, hepatitis C et cetera. Followup on this depends upon lab results. It might be reasonable to recheck a rheumatoid factor in 6-12 months. [id number] Bennie Oh MD , [facility], OFFICE [address] [place] [address] 12/16/2013 11:25:45 12/16/2013 12:41:07 Adult health examination 474702356 see Risk Assessment and Lifestyle Change Counseling section above Asthma 860177562 NOT ACTIVE- STOP SINGULAIR Thyroid ho rmone tests outside reference range 031901372 CHEMICAL HYPERTHYRO IDS- TSH LOW- ASYMPTOMAT IC- MAY NEED EDNO CONSULT TSH IS VERY LOW. REPEAT TEST Lyme disease 18844918 RE SOLVED LYME ARTHRITIS Screening for malignant neoplasm of cervix 189479146 [id number] Bebeto Moore MD Rheumatol ogy, [facility] [address] [place] [address] 01/18/2014 11:30:03 01/20/2014 09:51:23 Pain of multiple joints 05285655 This is a 63-year-ol d patient who almost certainly had Lyme disease late last summer. She was treated and she responded. Now she is having some musculoske letal symptoms that are reminiscen t of the Lyme disease and she is quite worried about recurrent or chronic Lyme disease. Somewhat, confoundin g is the presence of a high titer rheumatoid factor. This has not been explained. There are no objective findings today. Specifical ly no joint swelling, synovitis and she had very minor inflammato ry type symptoms. I told her that repeating the Lyme titer would not provide useful informatio n. Her Western blot was positive, and the antibody pattern may have evolved but won't give us any informatio n about ongoing infection. I do not not think it is likely she has had recurrence of Lymevafter completing her doxycyclin e treatment. Her current symptoms seem fairly mild and there are no objective findings. I am a little more concerned about the possibilit y of something connected to her high titer positive rheumatoid factor. Despite my explanatio ns, she remained very concerned about the possibilit y of Lyme disease, asked about referral to an expert on this topic. She could consider being seen locally by Dr. Schulz or Cande at the [facility]. However, I reiterated that I did not think this was likely to be recurrent Lyme disease. If she has progressio n of symptoms and begins to get the tingling dysesthesi a that she had at the time of her initial presentati on, I might be willing to prescribe another course of doxycyclin e to see if this is responsive to antibiotic s. Measuremen t finding outside reference range 138492804 Very high titer rheumatoid factor at 1722. She does not have rheumatoid arthritis. Positive rheumatoid factor is reported in associatio n with Sjogren's, hepatitis C, Sacrcoidos is, primary biliary cirrhosis. et cetera. Also reported positive occasional ly in Lyme, though I don't know if this is at high titer. . Followup on this depends upon lab results. It might be reasonable to recheck a rheumatoid factor in 6-12 months. Addendum: Needs additional lab test for LFT's and antimitoch ondrial antibody. [id number] Bennie Oh MD , [facility], OFFICE [address] [place] [address] 05/16/2014 11:55:43 05/16/2014 12:41:26 Thyroid adenoma 780506512 hyper functionin g nodule- urged to go ahead with surgery . could wait until summer as she is clinically euthyoid. told the condition would progress. Plus she is at risk for a.fib and osteoporos is Subclinica l hyperthyroidism 725246091 Carcinoid tumor 262865938 hx of carcinoid tumor- followed by [facility] surgeon Gastroesop hageal reflux disease 508144556 wants to cut back on protonix Lyme disease 29294746 RE SOLVED LYME ARTHRITIS but pt swear she still has sx. plan contact Dr. Moore. [id number] Bennie Oh MD , [facility], OFF[address] [place] [address] 06/13/2014 09:39:17 06/13/2014 10:19:26 Thyroid adenoma 835006636 hyper functionin g nodule- to go ahead with surgery . Subclinica l hyperthyroidism 820630837 Lyme disease 71203746 RE SOLVED LYME ARTHRITIS but pt swear she still has sx. Paresthesia 22845702 not sure of etiology- pt to contact me 6-8 weeks after surgery. I will need to run this by jered Moore or Dr. Lr. ? need neuro consult [id number] Bennie Oh MD , [facility], OFFICE [address] [place] [address] 07/27/2014 13:40:58 07/28/2014 09:12:44 Thyroid adenoma 700417053 Hyperthyroidism 71914473 s/p right thyroidect milind Osteoarthr itis of knee 474677658 right knee injected with cortisone- ret prn [id number] Blanca Andersen NP , [facility], OFF[address] [place] [address] 08/25/2014 13:22:26 08/25/2014 13:50:10 Foot pain 90119254 [id number] Laura Olivarez D.O. , [facility], OFF[address] [place] [address] 10/08/2014 11:02:27 10/08/2014 11:21:07 Nasal infection 279697423 Foreign body - finger 034038829 [id number] Bennie Oh MD , [facility], [address] [place] [address] 11/22/2014 09:33:32 11/22/2014 10:25:24 Impacted cerumen 88461648 H61.23 successful irrigation [id number] Bennie Oh MD , [facility], [address] [place] [address] 01/05/2015 08:52:58 01/05/2015 09:55:52 Adult health examination 260172401 Z00.00 see Risk Assessment and Lifestyle Change Counseling section above Active or passive immunization 600512500 Z23 Carotid ar michael occlusion 188612115 I65.29 u/s regualrly- aymptomati c stay on asa and statin Hyperthyroidism 05844940 E05.90 s/p right thyroidect milind euthyroids pt told couldhave gained weight and gotten more abd adipose due to going from hyperthyoi d to euthyroid. pt not happy with this, but told not safe to stay hyperthyro id for long Osteoarthr itis of knee 431098574 M17.9 quite Gastroesop hageal reflux disease 780072580 K21.9 try to cut back on protonix [id number] Bennie Oh MD , [facility], [address] [place] [address] 06/21/2015 14:47:13 06/26/2015 11:25:50 Hyperlipidemia 49142373 E78.5 on statin Precerebra l arterial occlusion 406998773 I65.9 CONTINUE ASA no sx Subclinica l hyperthyroidism 040081141 E05.90 has been euthyroid recenty. pt is worried that she is getting low thyoid because has gained weight- told weight gain is not related to low thyoid. It is possible that when she was hyperthyoi d her weight may have been suppressed . [id number] Bennie Oh MD , [facility], OFF[address] [place] [address] 12/11/2015 15:19:56 12/11/2015 16:21:12 Atypical chest pain 587935060 R07.89 very vague symptoms- pt has atheroscle rotic disease in carotids- r/o cad [id number] Bennie Oh MD , [facility], [address] [place] [address] 01/01/2016 08:09:56 01/02/2016 14:29:17 Active or passive immunization 739334476 Z23 [id number] Bennie Oh MD , [facility], [address] [place] [address] 01/22/2016 11:26:05 01/22/2016 12:17:58 Adult health examination 771183862 Z00.00 see Risk Assessment and Lifestyle Change Counseling section above Thyroid st imulating hormone level above reference range 759543111 R79.89 slightly elevated Gastroesop hageal reflux disease 335233741 K21.9 try to cut back on protonix Precerebra l arterial occlusion 306141054 I65.9 CONTINUE ASA and statin Chest wall pain 57852596 6 R07.89 left sternoclav icular ligamentou s sprain Asthma 494197268 J45.90 9 NOT ACTIVE- [id number] Bennie Oh MD , [facility], OFF[address] [place] [address] 04/11/2016 10:26:56 04/11/2016 14:58:29 Asthma 904583870 J45.729 [id number] Bennie Oh MD , [facility], [address] [place] [address] 07/22/2016 11:56:58 07/22/2016 12:21:29 Gastroesophageal reflux disease 416196152 K21.9 did cut back to not taking protonix 2 days a week Precerebra l arterial occlusion 789667496 I65.9 CONTINUE ASA and statin Carcinoid tumor 14007060 8 D3A.00 hx of carcinoid tumor- followed by [facility] surgeon Hyperthyroidism 18130168 E05.90 s/p right thyroidect milind euthyroids pt told couldhave gained weight and gotten more abd adipose due to going from hyperthyoi d to euthyroid. pt not happy with this, but told not safe to stay hyperthyro id for long Cough variant asthma 409 534832 J45.991 not active [id number] Sharee Serrano , [facility], OFF[address] [place] [address] 08/03/2016 10:05:38 08/03/2016 10:48:42 Myalgia/myositis - ankle/foot 978439423 M60.879 Symptoms fairly mild right now, but reminding pt of the last time she had Lyme. Will test and treat if needed and have pt continue to monitor symptoms. [id number] Kedar Varela MD , [facility], [address] [place] [address] 11/27/2016 08:00:47 11/28/2016 09:04:40 Active or passive immunization 311035399 Z23 [id number] Bennie Oh MD , [facility], [address] [place] [address] 01/22/2017 10:23:07 01/22/2017 11:21:12 Adult health examination 241140467 Z00.00 see Risk Assessment and Lifestyle Change Counseling section above Screening for malignant neoplasm of cervix 892261078 Z12.4 Gastroesop hageal reflux disease 210619144 K21.9 did cut back to not taking protonix 2 days a week Precerebra l arterial occlusion 784322572 I65.9 asymtomati c CONTINUE ASA and statin Carcinoid tumor 96983145 8 D3A.00 hx of carcinoid tumor- followed by thoracic surgeon Screening for malignant neoplasm of colon 273366957 Z12.11 doesn't want to do colonoscop y now will think about ie [id number] Bri Lucero MD , [facility], [address] [place] [address] 08/11/2017 11:35:27 08/11/2017 12:29:45 Mixed hyperlipidemia 788869840 E78.2 well controlled on meds; no changes [id number] Kedar Varela MD , [facility], [address] [place] [address] 11/21/2017 08:01:01 11/21/2017 13:59:02 Active or passive immunization 614068591 Z23 [id number] Bri Lucero MD , [facility], [address] [place] [address] 01/26/2018 10:54:47 01/26/2018 12:47:09 Adult health examination 798897641 Z00.00 see Risk Assessment and Lifestyle Change Counseling section above; Td due 2020; PCV 13 done today; interested in shingles shot #2. Paps done; Mammo prefers every 2 years. colon cancer screen had one colonoscop y now yearly poop tests Counseling 654061499 Z71 .9 Depression screening 171 765532 Z13.89 depression screening tool administer ed, entered into emr, scored and discussed, time greater than 7.5 minutes Mixed hyperlipidemia 267 016918 E78.2 well controlled on meds; no changes Postmenopausal state 764 68137 Z78.0 Active or passive immunization 335006329 Z23 Screening for malignant neoplasm of colon 616803561 Z12.11 due Hyperthyroidism 09373903 E05.90 due for check Tobacco user 693826501 Z 72.0 counseled 3 minutes Advance di rective discussed with patient 269284806 Z71.89 counseled 15 minutes [id number] Bri Lucero MD , [facility], [address] [place] [address] 02/25/2018 11:57:30 02/25/2018 12:56:08 Impacted cerumen 65086646 H61.23 removed. [id number] Meron Vo NP , [facility], [address] [place] [address] 12/22/2018 07:34:20 12/23/2018 15:11:10 Active or passive immunization 948486216 Z23 [id number] Bri Lucero MD , [facility], [address] [place] [address] 02/01/2019 11:09:09 02/01/2019 15:33:56 Adult health examination 376230036 Z00.00 see Risk Assessment and Lifestyle Change Counseling section above; Td due 2020; PCV 13 done today; interested in shingles shot #2. Paps done; Mammo prefers every 2 years. colon cancer screen had one colonoscop y now yearly poop tests Counseling 579280558 Z71 .9 Depression screening 171 Z13.89 depression screening tool administer ed, entered into emr, scored and discussed, time greater than 7.5 minutes Mixed hyperlipidemia 267 103330 E78.2 well controlled on meds; no changes Screening mammography 24 864281 Z12.31 Hypothyroidism 27351398 E03.9 Carotid ar michael occlusion 367112446 I65.29 Advance di rective discussed with patient 155256304 Z71.89 counseled 15 minutes Tobacco user 119451252 Z 72.0 counseled 3 minutes; very intermitte nt [id number] Elenita Doherty PA-C , [facility], [address] [place] [address] 02/18/2019 14:05:52 02/18/2019 15:44:39 Active or passive immunization 790373089 Z23 [id number] Kedar Varela MD , [facility], [address] [place] [address] 09/08/2019 11:47:47 09/09/2019 12:06:20 Pain in face 49598107 R51 L sided. L eyelid tender, exertion causes sharp shooting pain from L eyebrow to jainism. Denies ongoing pain, pain never extreme. Supr-orbit al notch not tender to touch. Suspect migraine. Advised ibuprofen 600 mg TID with food x 2 weeks. F/ if sxs persist or worsen. If sxs worsen would referral to neurology for evaluation and treatment for possible trigeminal neuralgia. Patient agreed to plan. Consulted with . [id number] Isis Oakley MD , [facility], [address] [place] [address] 02/03/2020 10:01:05 02/04/2020 10:43:02 Adult health examination 383406871 Z00.00 69 yr old female in overall good health seen today for annual wellness. Discussed current health concerns, reviewed screening recommenda tions, reviewed recent la, discussed diet, exercise, ETOH, and cardiac health as well as health goals for the coming year. Mammogram 2017 WNL with dense breasts & recommende d 1 yr f/u; 2019 cxl'd due to pandemic - 08/2020 scheduled. Colonscopy - 2004 Dr. Michaels. Has been doing FOBT since. Would like one mailed to her. PAP - no longer recommende d. 2017 WNL with negative HPV. Counseling 393371804 Z71 .9 including cardiovasc ular risk reduction counseling Depression screening 171 Z13.89 depression screening tool administer ed, entered into emr, scored and discussed, time greater than 7.5 minutes Screening for alcohol abuse 248539291 Z13.39 Audit-C performed, drinks 4-6oz red wine per night. Gastroesop hageal reflux disease 177682259 K21.9 Takes pantoprazo le to good effect - does not take daily - tapering down. Mixed hyperlipidemia 267 261123 E78.2 LDL 114, chol 192 & HDL 66. Continues to take atorvastin 80mg. Hyperthyroidism 10888206 E05.90 TSH 2.29. Osteoarthr itis of knee 789618317 M17.9 Ongoing, exercises and stretches. Cigarette smoker 4536117 7 F17.210 Smoking since age 22. Continues to smoke 3 cigarettes per day. Tobacco user 963580100 Z 72.0 Discussed, smoking 3 cigarettes per night. Using patches, discussed using nicotrol before she usually smokes. Osteopenia 824758790 M85 .80 2019 bone density study: Estimated 10-year risk - 10 %, hip fracture 1.5 % (FRAX) Taking Vit D 800IU & Calcium 600, walking & calistheni cs. Discussed increasing Vit D to 1000IU. Solar lentigo 52365255 L 81.4 Usually sees dermatolog y, unable to during COVID, requesting hydroquino ne cream. [id number] Bri Lucero MD , [facility], [address] [place] [address] 03/19/2021 11:09:49 03/22/2021 09:25:51 Adult health examination 459216740 Z00.00 see Risk Assessment and Lifestyle Change Counseling section above; Td due 2020; PCV 13 done today; thinks she got Shingles #2. Paps done; Mammo prefers every 2 years. colon cancer screen had one colonoscop y now yearly poop tests Counseling 255275745 Z71 .9 including cardiovasc ular risk reduction counseling Depression screening 171 Z13.31 depression screening tool administer ed, entered into emr, scored and discussed, time greater than 7.5 minutes Screening for alcohol abuse 908115610 Z13.39 Screening for malignant neoplasm of colon 741674186 Z12.11 due Hyperthyroidism 08608715 E05.90 due for check Cigarette smoker 5154350 7 F17.210 Tobacco user 701360586 Z 72.0 counseled 3 minutes; very intermitte nt Cough variant asthma 409 073556 J45.991 advil and muscle relaxers help Active or passive immunization 077454684 Z23 [id number] Ana Lamar MD FP, [facility], [address] [place] [address] 09/05/2021 17:32:16 09/06/2021 10:40:23 COVID-19 472548332 U07.1 Reviewed isolation, call if short of breath. Hold statin while on paxlovid [id number] Bri Lucero MD , [facility], [address] [place] [address] 10/17/2021 12:08:29 10/18/2021 09:35:24 Impacted cerumen 47313871 H61.23 rinsed today; call if no help.could be BPPV, could require a neurologic al eval. [id number] Chanell Cummings MD , [facility], [address] [place] [address] 11/28/2021 12:49:53 11/28/2021 16:57:18 Active or passive immunization 126399096 Z23 [id number] Bri Lucero MD , [facility], [address] [place] [address] 04/23/2022 13:40:36 04/23/2022 14:47:28 Adult health examination 142478965 Z00.00 Wellness exam: -Last PAP 01/2017 wnl; repeat not indicated with age.-Labs reviewed.- Declines colonoscop y, stool cards ordered.-M ammogram: 08/2020: repeat ordered-Re ports recent skin check with Dr. Baldemar galarza.-RTO 4 months for f/u. Depression screening 171 038449 Z13.31 depression screening tool administer ed Screening for alcohol abuse 114706471 Z13.39 Alcohol use screening tool administer ed Tobacco user 806592630 Z 72.0 Declines pharmacolo gical interventi on currently; smoking 3 cigs per day. 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 Strickland and note 01/2022 reviewedSm oking about 3 cigs per day.On Gabapentin per pulmonary Carotid ar michael stenosis 08456899 I65.29 Last USN 2019, will USN again. Gastroesop hageal reflux disease 651358286 K21.9 On pantoprazo le 20 mg QOD Osteopenia 429140855 M85 .80 Last DEXA 2018, repeat ordered.Emeka ne density testing shows early bone loss (osteopeni a) but not osteoporos is. You should continue with weight bearing exercise, vitamin D supplement s (1-2,000 IU daily) and a diet high in calcium (1200 mg/day). Screening for malignant neoplasm of breast 397912665 Z12.39 [id number] Tien Michel MD , [facility], [address] [place] [address] 06/14/2022 11:23:30 06/14/2022 22:45:28 Pain in right foot 3753619660 51247 M79.671 X-rays to r/o fracture.D iscussed rest, activity modificati on, ice/heat applicatio n, and NSAID/acet aminophen dosing as needed unless contraindi cated. [id number] Kristel Sosa DO FP, [facility], [address] [place] [address] 07/05/2022 15:07:18 07/05/2022 16:13:49 Injury of right foot 402149199 S99.921A Pt had 2nd injury of same foot after initial injury. Wll get x-ray to eval further. RN to tae wrap. Call with new/worsen ing symptoms or if no improvemen t. Pt agrees with plan. Localized swelling of right foot 3050595520 9014178 R22.41 RN to tae wrap, keep elevated, continue icing prn, will get x-ray foot s/p 2nd injury. [id number] Tien Michel MD , [facility], [address] [place] [address] 07/10/2022 14:19:08 07/10/2022 15:31:18 Acute deep vein thrombosis of lower limb 1666815319 08 I82.409 Peroneal vein thrombus noted on U/S of right leg.We discussed risks/bene fits/indic ations for 3 months of anticoagul ation today. Due to her expected continued immobility for several weeks due to her foot pain, possible fracture being evaluated by upcoming CT, we decided to start Xarelto and continue for 3 months.Iliana ck serial U/S in 2-4 weeks. [id number] MD BASILIO Bangura, [facility], [address] [place] [address] 08/22/2022 13:35:05 08/22/2022 14:16:30 Deep venous thrombosis 855074039 I82.409 provoked, 3 months of anticoagul ation Closed fra cture of metatarsal bone 18157715 S92.301D # 2,3,4; in boot, doing OK following with Ortho [id number] MD BASILIO Bangura, [facility], [address] [place] [address] 10/17/2022 13:39:51 10/17/2022 17:36:42 Tobacco user 385127611 Z72.0 We discussed your smoking today for more than 3 minutes. Cigarette use is the leading cause of preventabl e disease, disability , and in the [place]. We talked about tools and medication s available to help you in smoking cessation. We discussed utilizing our smoking cessation health and wellness coach and online resources. Your personal goal:try replacing with the inhalers you have Venous embolism 66471918 2 I82.90 lower leg, not in deep system; triggered by a foot fracturedi scussed stopping anticoagul ation. she has been on for 3 months. she wishes to finish the current bottle and then stop. Closed fra cture of metatarsal bone 81529455 S92.301D # 2,3,4; in boot, doing OK following with Orthoin PT in September 2022. [id number] Bri Lucero MD , [facility], [address] [place] [address] 11/29/2022 07:19:33 11/29/2022 14:09:44 Active or passive immunization 458449345 Z23 [id number] MD BASILIO Bangura, [facility], [address] [place] [address] 01/16/2023 13:39:21 01/16/2023 14:13:47 Tobacco user 245931059 Z72.0 We discussed your smoking today for more than 3 minutes. Cigarette use is the leading cause of preventabl e disease, disability , and in the [place]. We talked about tools and medication s available to help you in smoking cessation. We discussed utilizing our smoking cessation health and wellness coach and online resources. Your personal goal:best would be to stop her 3-4 cigarettes Thrombosis of superficial vein of lower limb 164551360 I82.819 below calf; father did have a PE; but her clot was triggered by an injury and was not above the knee. OK to stop xarelto [id number] MD BASILIO Bangura, [facility], [address] [place] [address] 04/28/2023 14:28:33 05/13/2023 19:29:53 Adult health examination 392076028 Z00.00 see Risk Assessment and Lifestyle Change Counseling section above; Td due 2020; PCV 13 done today; thinks she got Shingles #2. Paps done; Mammo prefers every 2 years. colon cancer screen had one colonoscop y now yearly poop tests Depression screening 171 922926 Z13.31 depression screening tool administer ed Screening for alcohol abuse 496010155 Z13.39 Alcohol use screening tool administer ed Screening for malignant neoplasm of colon 814235437 Z12.11 due Tobacco user 715896191 Z 72.0 We discussed your smoking today for more than 3 minutes. Cigarette use is the leading cause of preventabl e disease, disability , and in the [place]. We talked about tools and medication s available to help you in smoking cessation. We discussed utilizing our smoking cessation health and wellness coach and online resources. Your personal goal:best would be to stop her 3-4 cigarettes Screening mammography 24 441079 Z12.31 [id number] MD BASILIO Bangura, [facility], [address] [place] [address] 12/05/2023 07:37:15 12/08/2023 12:43:17 Active or passive immunization 386956959 Z23 [id number] MD BASILIO Bangura, [facility], [address] [place] [address] 05/28/2024 11:25:34 06/01/2024 14:37:06 Adult health examination 132574592 Z00.00 Discussed current health concerns, reviewed screening recommenda tions, discussed diet, exercise, ETOH, and cardiac health as well as health goals for the coming yearhealth care proxy - on file Depression screening 171 626063 Z13.31 depression screening tool administer edPHQ-9: 4 Screening for alcohol abuse 707576851 Z13.39 Alcohol use screening tool administer edReviewed definition s of moderate versus heavy alcohol intake. Reviewed health consequenc es associated with prolonged exposure to heavy amounts of alcohol. Advised limiting consumptio n to no more than 1 drink per day. Discussed availabili ty of additional support through medication or with counsellin g available through [facility] Xerostomia 48237205 R68. 2 worsening, ongoing x1 yearDr. Em has reduced claudine dose by 200mg to monitor for responsewi ll order sjogrens labsdiscus sed lifestyle changes like xylimelts, hydration Hyperthyroidism 72937474 E05.90 TSH 2.83 - stablenot on meds Cough variant asthma 409 732827 J45.[address] Strickland Carotid ar michael stenosis 07640573 I65.29 50-69% stenosis of the ICAssee below Precerebra l arterial occlusion 077876860 I65.9 Carotid ultrasound shows 50-69% stenosis in both internal carotid arteries.H as carotid US q2 years for monitoring Impacted c erumen in right ear 4512208249 708068 H61.21 lavage done by nursing Trochanter ic bursitis of right hip 9465405121 67159 M70.61 pinpoint tenderness of right greater trochanter sxs persistent suspect trochanter ic bursitispt defers interventi on at this moment Screening for malignant neoplasm of colon 767668676 Z12.11 You were given a stool kit today for Colorectal Cancer screening. Please review the instructio ns and return the kit to our office within 7 days. The kits so check the date before submitting the sample. Contact our office with any questions or concerns. Hyperlipidemia 36760715 E78.5 cholestero l 172 / triglyceri iraj 91 / HDL 65 / LDL 89discusse d lifestyle modificati onscontinu e atorvastat in 80mg Health Concerns Section Related Observation LastModified by Organization Detai ls LastModified Time None Recorded Concern Status LastModified by Organization Details LastModified Time None Recorded Advance Directives Directive N: form given-regiven latia Isaac Payers Encounter Date Sequence Insurance Name Policy Number Policy Bullard Covered Member ID Bullard Member ID Guarantor Name 11/29/2022 1 MEDICARE B-CO: NATIONAL [employer]MENT [employer] Myranda A Dibrindisi [id number] Myranda A Dibrindisi 11/29/2022 2 [employer] - SENIOR SERVICES PLAN F (MEDICARE SUPPLEMENT) [id number] Myranda A Dibrindisi [id number] Myranda A Dibrindisi 01/16/2023 1 MEDICARE B-CO: NATIONAL GOVERNMENT SERVICES Myranda A Dibrindisi [id number] 43 Myranda A Dibrindisi 01/16/2023 2 [employer] - SENIOR SERVICES PLAN F (MEDICARE SUPPLEMENT) [id number] Myranda A Dibrindisi [id number] Myranda A Dibrindisi 04/28/2023 1 MEDICARE B-CO: NATIONAL [employer]OV[employer]MENT SERVICES Myranda A Dibrindisi [id number] 43 Myranda A Dibrindisi 04/28/2023 2 [employer] - SENIOR SERVICES PLAN F (MEDICARE SUPPLEMENT) [id number] Myranda A Dibrindisi [id number] Myranda A Dibrindisi 12/05/2023 1 MEDICARE B-CO: NATIONAL GOVERNMENT SERVICES Myranda A Dibrindisi [id number] 43 Myranda A Dibrindisi 12/05/2023 2 [employer] - SENIOR SERVICES PLAN F (MEDICARE SUPPLEMENT) [id number] Myranda A Dibrindisi [id number] Myranda A Dibrindisi 05/28/2024 1 MEDICARE B-CO: NATIONAL GOVERNMENT SERVICES Myranda A Dibrindisi [id number] Myranda A Dibrindisi 05/28/2024 2 [employer] - SENIOR SERVICES PLAN F (MEDICARE SUPPLEMENT) [id number] Myranda A Dibrindisi [id number] Myranda A Dibrindisi Notes Date Note Type Note Provider Name and Address Organization Details Recorded Time 3 text/html 3 month follow up 10/17/22saw VIVIANES for her potential Lisfranc fracture follow up; now out of boot and in PT with [facility]. distal clot, not in deep veins of calf; has been on anticoagulation x 3 months Bri Lucero MD [address] [place] [address], [phone], [facility] 01/16/2023 14:18:19 4 text/html Physical Exam/FemaleReported bypatient.PHAPatient is here for a Wellness Visit. She describes her health status as good. Patient's health is worse than last year.Notes:steady on feet; no falls.no concerns about memory still smoking intermittently - at moments of high stress. counseled she should quit completely, she is aware.Risk Assessment and Lifestyle Change Counseling 65+ (Medicare)Reported bypatient.Coronary Artery Disease Risk Assessment:No Family history of coronary artery disease; No personal history of diabetes; No history of peripheral vascular disease, AAA, or carotid disease; No personal history of coronary artery disease; [place] 10 year risk Breast Cancer Risk Assessment:No family history of breast cancer; No history of breast cancer or dcis Colon Cancer Risk Assessment:No family history of pre cancerous colon polyps or cancer Lung Cancer Risk Assessment:Current smoker;Has used cigarettes less than 30 pack years Fracture Risk Assessment:No unexplained fracture; balance is normal; balance is poor; No use of corticosteroids; No anti-seizure medication;Abnormal bone density osteopenia; Has adequate calcium intake; Taking Vitamin D supplement;Uses proton pump inhibitors on a chronic basis; Frax 10 year fracture risk 5-10% Cognitive/Behavioral Risk Assessment:No personal history of mental illness; No family history of mental illness; Do you or anyone else have concerns about your memory? no; Alcohol use counseled less than 7.5 minutes; Tobacco use counseled 3-10 minutes; drug use counseled; BMI reviewed normal ; Reviewed depression screening less than 7.5 minutes Safety Risk Assessment:Has grab bars in bathroom; Has rails on steps; No falls; No evidence of abuse/neglect; Do you feel safe in your current relationship?YES; Fall June 2019, tripped on sidewalk Functional Status:Patient does not have trouble hearing the television or radio when others do not.; Patient does not have to strain or struggle to hear/understand conversations; Patient does not need help with preparing meals, transportation, shopping, taking medicine, managing finances, or other activities of daily living.; Patient does not have visual loss that interferes with daily activities; Does not live alone; Patient was not unsteady and did not take longer than 30 seconds during the timed get up and go test.; Patient reports no falls in the past 6 months. Diet:Counseled about appropriate portion size; Counseled about eating a diet low in trans and saturated fats and high in fiber, fruits and vegetables; Counseled about appropriate calcium intake and good dietary sources of calcium.; Counseled about the importance of maintaining a positive calcium balance and taking 1000 iu Vitamin D daily.; Counseled about decreasing carbohydrates; Counseled about decreasing salt in diet; Discussed the value of a Mediterranean diet , and eating more fruits and vegetables Exercise counseling:Discussed the importance of daily physical activity; Discussed the importance of weight bearing exercise Safety:Counseled about protecting skin from the sun and lowering the risk of skin cancer; Counseled about avoiding excessive and unsafe alcohol intake; Counseled about home safety including use of smoke detectors, CO detectors, keeping home water temperature less than 120; Counseled about use of seat belts; Counseled about fall risk from throw rugs and the need for hand rails on steps and in bath; An audit alcohol screening was performed and scored. Patient was asked about alcohol use. Advised about risks of alcohol. Personal risk was assessed. Patient agreed to plan and given information about available resources if needed. Discussion including screening and scoring greater than 7.5 minutes..VMG HyperlipidemiaReported bypatient.Duration:chronic Control:well controlled; LDL has been 100-130, goal is <130; treated with diet; treated with medications; Patient understands medications are to lower cholesterol Compliance:compliant with medications; compliant with follow-up visits; compliant with diet Barriers to CareNo identified barriers to care Context:No diabetes Associated Symptoms:no muscle pain; no fatigue; no chest discomfort; no dyspnea; no change in exercise capacity Ability to Manage Self CareOn how confident the patient feels in ability to self manage condition the patient selects 10 with 10 being very confident and 1 being very low confidence; Patient feels very confident in ability to self manage conditiona/vmg-smoking [id number] bypatient.ImportanceOn a scale of 1-10 with 1 being not important and 10 being very important the patient rates importance of stopping smoking as 10 Readiness to quit smoking/vapingOn a scale of 1-10 with 1 being not ready and 10 being very ready the patient rates readiness to stop smoking as 6 Physiological Dependence/Health RiskCurrently smoking 5 cigarettes per day; Patient has first cigarette greater than 30 minutes after awakening; Patient has tried to stop smoking 3 times.; Started smoking age: 22 Medication AssessmentHas used Patch in the past 04/28/23 Pt is here for wellness visitbroke her foot; has some pain when she bears weight and considering further surgeries; counseled re general recommendation to do nothing unless it absolutely necessary fell last May vacuuming the SUV and backed out forgetting the automatic step wasn't there. t here for wellness Pt would like to know if she is due for carotid artery test this year. 03/19/21 [place] w/ [place]69 yr old female seen today for annual wellness visit.having cigarettes daily; not many; feels this is a relief as he is sick now;discussed smoking history she is not at 32 years; did have surgery in 2011; 1.3 cm nodule as far as I can tell that was lymph nodes from path in chart. memory OK and no falls. exercising not much these days; very stressed due to 's illness Reports:Chronic allergy/asthma cough & some questions about getting COVID vaccine. Sleep - cough and some stress keeping her awake at times (previously never had problems with sleep). Skin - noticing brown spots from sun; has had chemical peels in past to keep them in check. Sees Dr. Mcdermott for these; requesting hydroquinone cream.Tenderness over left eye - onset in August 2019, saw NB for it; not constant, does not affect her daily. No changes to vision. Only tender with touch.Fall - in June 2019, tripped on pavement and hurt foot.Social: Meeting friends in parking lot to visit.Lives with partner so limits socializing and going out. Has groceries delivered.Took early penitentiary (12 yrs ago) from [employer] dept. Volunteered for [employer].Hobbies: gardening and reading. Diet - overall good/varied; salad & vegetables, does not eat lunch.Caffeine intake - 3-4 cups of coffee per day.Water intake - 24oz water daily. Time for intake: {{1 2 3 4 5 6 7 8 9 10 11 1 2 13 14 15 16 17* 18 19 20 21 22 23 24 25}} minutes. Bri Lucero MD [address] [place] [address], [phone], [facility] 05/12/2023 12:41:32 5 text/html Physical Exam/FemaleReported bypatient.PHAPatient is here for a Wellness Visit. She describes her health status as good. Patient's health is the same as last year.Risk Assessment and Lifestyle Change Counseling (Medicare)Reported bypatient.Coronary Artery Disease Risk Assessment:No Family history of coronary artery disease; No personal history of diabetes; No history of peripheral vascular disease, AAA, or carotid disease; No personal history of coronary artery disease; [place] 10 year risk Breast Cancer Risk Assessment:No family history of breast cancer; No history of breast cancer or dcis Colon Cancer Risk Assessment:No family history of pre cancerous colon polyps or cancer Lung Cancer Risk Assessment:Current smoker;Has used cigarettes less than 30 pack years Fracture Risk Assessment:No unexplained fracture; balance is normal; balance is poor; No use of corticosteroids; No anti-seizure medication;Abnormal bone density osteopenia; Has adequate calcium intake; Taking Vitamin D supplement;Uses proton pump inhibitors on a chronic basis; Frax 10 year fracture risk 5-10% Cognitive/Behavioral Risk Assessment:No personal history of mental illness; No family history of mental illness; Do you or anyone else have concerns about your memory? no; Alcohol use counseled less than 7.5 minutes; Tobacco use counseled 3-10 minutes; drug use counseled; BMI reviewed normal ; Reviewed depression screening less than 7.5 minutes Safety Risk Assessment:Has grab bars in bathroom; Has rails on steps; No falls; No evidence of abuse/neglect; Do you feel safe in your current relationship?YES; Fall June 2019, tripped on sidewalk Functional Status:Patient does not have trouble hearing the television or radio when others do not.; Patient does not have to strain or struggle to hear/understand conversations; Patient does not need help with preparing meals, transportation, shopping, taking medicine, managing finances, or other activities of daily living.; Patient does not have visual loss that interferes with daily activities; Does not live alone; Patient was not unsteady and did not take longer than 30 seconds during the timed get up and go test.; Patient reports no falls in the past 6 months. Diet:Counseled about appropriate portion size; Counseled about eating a diet low in trans and saturated fats and high in fiber, fruits and vegetables; Counseled about appropriate calcium intake and good dietary sources of calcium.; Counseled about the importance of maintaining a positive calcium balance and taking 1000 iu Vitamin D daily.; Counseled about decreasing carbohydrates; Counseled about decreasing salt in diet; Discussed the value of a Mediterranean diet , and eating more fruits and vegetables Exercise counseling:Discussed the importance of daily physical activity; Discussed the importance of weight bearing exercise Safety:Counseled about protecting skin from the sun and lowering the risk of skin cancer; Counseled about avoiding excessive and unsafe alcohol intake; Counseled about home safety including use of smoke detectors, CO detectors, keeping home water temperature less than 120; Counseled about use of seat belts; Counseled about fall risk from throw rugs and the need for hand rails on steps and in bath; An audit alcohol screening was performed and scored. Patient was asked about alcohol use. Advised about risks of alcohol. Personal risk was assessed. Patient agreed to plan and given information about available resources if needed. Discussion including screening and scoring greater than 7.5 minutes..Social DeterminantsReported bypatient.Living situationno concerns Living situation...do you have problems with the following:no concerns In the past 12 months, have you worried your food would run out before you had money to buy more?no concerns Within the past 12 months, the food just didn't last and you didn't have money to get more.no concerns Has lack of transportation kept you from medical appointments, meetings, work, etc?no In the past 12 months has the [employer], [employer], [employer] or [employer] threatened to shut off services?no How hard is it for you to pay the very basics like food, house, medical care and housing?no concernsVMG HyperlipidemiaReported bypatient.Duration:chronic Control:well controlled; LDL has been 100-130, goal is <130; treated with diet; treated with medications; Patient understands medications are to lower cholesterol Compliance:compliant with medications; compliant with follow-up visits; compliant with diet Barriers to CareNo identified barriers to care Context:No diabetes Associated Symptoms:no muscle pain; no fatigue; no chest discomfort; no dyspnea; no change in exercise capacity Ability to Manage Self CareOn how confident the patient feels in ability to self manage condition the patient selects 10 with 10 being very confident and 1 being very low confidence; Patient feels very confident in ability to self manage condition CO note: pt presents for annual wellness visit, no further specific concerns at this time She has been experiencing progressively worsening dry mouth over the past year, with significant symptoms in the last four to five months. The dryness is particularly severe in the morning, affecting the roof of her mouth and the top of her tongue. She uses a mouthwash for dry mouth and lozenges to manage the symptoms. She is currently on gabapentin, which was reduced by 200 mg at night to see if it alleviates the dry mouth. She was previously on 300 mg three times a day, which helped manage her cough, but reducing the dose has led to a slight return of the cough.She has a history of carotid artery stenosis, monitored every other year with ultrasounds. 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 This condition has been monitored for about twelve years. She reports a family history of strokes, which is a concern given her carotid artery condition.She describes experiencing tenderness in her upper thigh, which she feels might be related to physical activity. The tenderness is exacerbated by activities such as climbing stairs or carrying heavy objects. She is unsure if it is a nerve issue or related to inflammation. URI ROBLES [address] [place] [address], [place], [phone], [facility] 05/28/2024 13:59:05 OBGyn Episode No OBEpisode recorded.
== END 2024-06-29 15:03 | disposition home or self-care (01) ==
LOC: HO.HVS 14:25
PROVIDERS: PCP Physician Assistant; Visit Provider Surgery Vascular Surgery
DX: I65.23 Occlusion and stenosis of bilateral carotid arteries (principal)
CPT/HCPCS: 99204

== ENCOUNTER → 2024-06-29 14:25 | Outpatient (BNVA) | payer MEDICARE, SELFPAY | PROVIDERS: PCP Physician Assistant; Visit Provider Surgery Vascular Surgery | DX: I65.23 Occlusion and stenosis of bilateral carotid arteries (principal) | CPT/HCPCS: 99202 ==